=== PATIENT | female | born 2000 | race American Indian/Alaskan Native ===

== ENCOUNTER 2021-04-22 04:14 | Inpatient (IN) | payer OTHER ==
[2021-04-22] MEDS ORDERED: SODIUM CHLORIDE 0.9% 1000 ML 1,000 ML IV ONE ×2 (07:19)
[2021-04-22] MEDS ORDERED: METOCLOPRAMIDE 10 MG/2 ML INJ IV ONE (07:32)
--- NOTE | 2021-04-22 07:38 | Emergency Department Report ---
HPI - General Chief Complaint: Weakness Time Seen by Provider: 04/22/21 07:32 - HPI HPI: Room 25 The patient is a 21-year-old female present with a chief complaint of of "dehydration." The patient states she found out she was approximately 2 months ago. The patient states she has had significant nausea vomiting for the past 2 months and has had significantly decreased p.o. intake. Patient states she is also had intermittent lower abdominal cramping over the past 2 weeks. Patient states she has had shortness of breath and dyspnea on exertion for the past 1 to 2 weeks. Patient denies history of cough or fever but states she has had nasal congestion. Patient states she was never vaccinated for COVID-19. The patient states she had an ultrasound for her 2 weeks ago that showed an IUP. ED Past Medical Hx - Past Medical History Previous Medical History?: No - Surgical History Past Surgical History?: No - Family History Family history: no significant - Social History Smoking Status: Never Smoker Substance Use Type: None (Denies illicit drug use) - Medications Home Medications: Home Medications Medication Instructions Recorded Confirmed Last Taken Type No Known Home Medications [No 04/22/21 04/22/21 Unknown History Reported Home Medications] ED Review of Systems ROS: Stated complaint: EMESIS/10WKS PREG/NO ENERGY Other details as noted in HPI Constitutional: denies: fever Eyes: denies: eye pain ENT: denies: throat pain Respiratory: shortness of breath, SOB with exertion. denies: cough Endocrine: no symptoms reported Gastrointestinal: abdominal pain, nausea, vomiting Genitourinary: denies: dysuria Musculoskeletal: denies: back pain Neurological: denies: headache Physical Exam - Physical Exam Vital Signs: Vital Signs 04/22/21 05:01 Temperature 98.6 F Pulse Rate 133 H Respiratory 19 Rate Blood Pressure 89/56 [Left] O2 Sat by Pulse 100 Oximetry Physical Exam: GENERAL: The patient is well-developed well-nourished female lying on stretcher not appearing to be in acute distress. [] HEENT: Normocephalic. Atraumatic. Extraocular motions are intact. Patient has dry lips NECK: Supple. Trachea midline CHEST/LUNGS: Clear to auscultation. There is no respiratory distress noted. HEART/CARDIOVASCULAR: Regular. There is tachycardia. There is no gallop rub or murmur. ABDOMEN: Abdomen is soft, nontender. Patient has normal bowel sounds. There is no abdominal distention. SKIN: There is no rash. There is no edema. There is no diaphoresis. NEURO: The patient is awake, alert, and oriented. The patient is cooperative. The patient has no focal neurologic deficits. The patient has normal speech MUSCULOSKELETAL: There is no evidence of acute injury. ED Course Vital Signs 04/22/21 05:01 Temperature 98.6 F Pulse Rate 133 H Respiratory 19 Rate Blood Pressure 89/56 [Left] O2 Sat by Pulse 100 Oximetry - Consultations Consultation #1: 04/22/21 10:02 METROLOGIST paged 04/22/21 11:[address] Johnson-will consult ED Medical Decision Making - Lab Data Result diagrams: 04/22/21 08:14 04/22/21 08:14 Laboratory Tests 04/22/21 04/22/21 04/22/21 08:14 08:14 08:14 WBC 7.5 RBC 5.30 H Hgb 15.9 H Hct 45.1 H MCV 85 MCH 30 MCHC 35 H RDW 11.8 L Plt Count 320 Lymph % (Auto) 17.9 [place] % (Auto) 8.9 H Eos % (Auto) 0.5 Baso % (Auto) 0.4 Lymph # (Auto) 1.3 [place] # (Auto) 0.7 Eos # (Auto) 0.0 Baso # (Auto) 0.0 Seg Neutrophils % 72.3 H Seg Neutrophils # 5.4 D-Dimer 188.83 Sodium 131 L Potassium 2.4 L* Chloride 79.7 L Carbon Dioxide 29 Anion Gap 25 BUN 28 H Creatinine 1.0 Estimated GFR > 60 BUN/Creatinine Ratio 28 Glucose 102 H Calcium 10.9 H Total Bilirubin 2.00 H AST 89 H ALT 146 H Alkaline Phosphatase 107 NT-Pro-B Natriuret Pep Total Protein 8.8 H Albumin 4.8 Albumin/Globulin Ratio 1.2 TSH Free T4 HCG, Quant Urine Color Urine Turbidity Urine pH Ur Specific [place] Urine Protein Urine Glucose (UA) Urine Ketones Urine Blood Urine Nitrite Urine Bilirubin Urine Ictotest Urine Urobilinogen Ur Leukocyte Esterase Urine WBC (Auto) Urine RBC (Auto) U Epithel Cells (Auto) Urine Bacteria (Auto) Hyaline Casts Urine Mucus 04/22/21 04/22/21 04/22/21 08:14 08:14 Unknown WBC RBC Hgb Hct MCV MCH MCHC RDW Plt Count Lymph % (Auto) [place] % (Auto) Eos % (Auto) Baso % (Auto) Lymph # (Auto) [place] # (Auto) Eos # (Auto) Baso # (Auto) Seg Neutrophils % Seg Neutrophils # D-Dimer Sodium Potassium Chloride Carbon Dioxide Anion Gap BUN Creatinine Estimated GFR BUN/Creatinine Ratio Glucose Calcium Total Bilirubin AST ALT Alkaline Phosphatase NT-Pro-B Natriuret Pep 19.88 Total Protein Albumin Albumin/Globulin Ratio TSH 0.016 L Free T4 2.95 H HCG, Quant [id number] H Urine Color [place] Urine Turbidity Slightly-cloudy Urine pH 5.0 Ur Specific [place] 1.028 Urine Protein 100 mg/dl Urine Glucose (UA) 50 Urine Ketones 80 Urine Blood Sm Urine Nitrite Neg Urine Bilirubin Mod Urine Ictotest Negative Urine Urobilinogen 4.0 Ur Leukocyte Esterase Mod Urine WBC (Auto) 48.0 H Urine RBC (Auto) 22.0 U Epithel Cells (Auto) 23.0 H Urine Bacteria (Auto) 1+ Hyaline Casts 54 Urine Mucus 3+ - EKG Data -: EKG Interpreted by Ut EKG shows normal: sinus rhythm Rate: normal - EKG Data When compared to previous EKG there are: previous EKG unavailable Interpretation: nonspecific ST-T wave ysabel (Questionable U wave lead V3) - Differential Diagnosis Hyperemesis gravidarum, COVID-19, PE, URI, symptomatic anemia Critical care attestation.: If time is entered above; I have spent that time in minutes in the direct care of this critically ill patient, excluding procedure time. ED Disposition Clinical Impression: Hyperemesis gravidarum, Hypokalemia, UTI (urinary tract infection), Transaminitis, Hyperthyroidism Disposition: OP ADMIT IP TO THIS HOSP Is pt being admited?: Yes Does the pt Need Aspirin: No Condition: Fair Referrals: PRIMARY CARE,MD [Primary Care Provider] - 3-5 Days Time of Disposition: 11:17 (Hospitalist paged (Dr. Black))
[2021-04-22 08:49] LABS: Bacteria,Urine 1+ /HPF (Negative); Bilirubin,Urine MOD (Negative); Blood,Urine SM (Negative); Color,Urine Amber (Yellow); Hyaline Casts,Urine 54 /LPF; Mucus,Urine 3+ /HPF
[2021-04-22 08:54] LABS: Basophils % (Auto) 0.4 % (0.0-1.8); Eosinophils % (Auto) 0.5 % (0.0-4.3); Hematocrit 45.1 % (30.3-42.9); Hemoglobin 15.9 gm/dl (10.1-14.3); Lymphocytes # (Auto) 1.3 K/mm3 (1.2-5.4); Lymphocytes % (Auto) 17.9 % (13.4-35.0); Mean Corpuscular HGB Conc 35 % (30-34); Mean Corpuscular Volume 85 fl (79-97); Monocytes # (Auto) 0.7 K/mm3 (0.0-0.8); Monocytes % (Auto) 8.9 % (0.0-7.3); Platelet Count 320 K/mm3 (140-440); Red Cell Distribution Width 11.8 % (13.2-15.2)
[2021-04-22] MEDS ORDERED: cefTRIAXone/NS 1 GM/50 ML 1 GM/50 ML BAG IV ONE (08:57)
[2021-04-22 08:59] LABS: Ictotest,Urine Negative (Negative)
[2021-04-22 09:11] LABS: Alanine Aminotransferase 146 units/L (7-56); Albumin 4.8 g/dL (3.9-5); BUN/Creatinine Ratio 28; Blood Urea Nitrogen 28 mg/dL (7-17); Calcium 10.9 mg/dL (8.4-10.2); Hemolysis Index 7
[2021-04-22] MEDS ORDERED: POTASSIUM CHLORIDE ER 20 MEQ TAB PO ONE (09:24)
[2021-04-22 09:27] LABS: Free T4 (Free Thyroxine) 2.95 ng/dL (0.76-1.46)
--- NOTE | 2021-04-22 09:27 | XRay Report ---
CHEST 1 VIEW 0915 INDICATION / CLINICAL INFORMATION: Shortness of breath COMPARISON: None available. FINDINGS: SUPPORT DEVICES: None HEART / MEDIASTINUM: No significant abnormality. LUNGS / PLEURA: No significant pulmonary or pleural abnormality. No pneumothorax. ADDITIONAL FINDINGS: No significant additional findings. IMPRESSION: No significant acute abnormality Signer Name: Carlos Dumont MD Signed: 04/22/2021 9:23 AM Workstation Name: [id number]
[2021-04-22] MEDS: POTASSIUM CHLORIDE 10 MEQ 10 MEQ/100 ML BAG IV SCH ×4 (09:46→15:48)
--- NOTE | 2021-04-22 14:34 | Consultation ---
History of Present Illness Consult date: 04/22/21 Reason for consult: other (nausea/vomiting of ) Medications and Allergies Allergies Allergy/AdvReac Type Severity Reaction Status Date / Time No Known Allergies Allergy Unverified 04/22/21 05:03 Home Medications Medication Instructions Recorded Confirmed Last Taken Type No Known Home Medications [No 04/22/21 04/22/21 Unknown History Reported Home Medications] Review of Systems All systems: negative (n/v) - Vital Signs Vital signs: Vital Signs Temp Pulse Resp BP Pulse Ox 98.6 F 133 H 19 89/56 100 04/22/21 05:01 04/22/21 05:01 04/22/21 05:01 04/22/21 05:01 04/22/21 05:01 Temp Pulse Resp BP Pulse Ox 98.6 F 96 H 13 99/54 99 04/22/21 07:40 04/22/21 14:00 04/22/21 14:00 04/22/21 14:00 04/22/21 14:00 Results Result Diagrams: 04/23/21 05:07 04/23/21 05:07 Abnormal lab results 04/22/21 04/22/21 04/22/21 Range/Units 08:14 08:14 08:14 RBC 5.30 H (3.65-5.03) M/mm3 Hgb 15.9 H (10.1-14.3) gm/dl Hct 45.1 H (30.3-42.9) % MCHC 35 H (30-34) % RDW 11.8 L (13.2-15.2) % [place] % (Auto) 8.9 H (0.0-7.3) % Seg Neutrophils % 72.3 H (40.0-70.0) % Sodium 131 L (137-145) mmol/L Potassium 2.4 L* (3.6-5.0) mmol/L Chloride 79.7 L (98-107) mmol/L BUN 28 H (7-17) mg/dL Glucose 102 H (65-100) mg/dL Calcium 10.9 H (8.4-10.2) mg/dL Total Bilirubin 2.00 H (0.1-1.2) mg/dL AST 89 H (5-40) units/L ALT 146 H (7-56) units/L Total Protein 8.8 H (6.3-8.2) g/dL TSH 0.016 L (0.270-4.200) mlU/mL Free T4 2.95 H (0.76-1.46) ng/dL HCG, Quant [id number] H (0-4) mIU/mL Urine WBC (Auto) (0.0-6.0) /HPF U Epithel Cells (Auto) (0-13.0) /HPF 04/22/21 Range/Units Unknown RBC (3.65-5.03) M/mm3 Hgb (10.1-14.3) gm/dl Hct (30.3-42.9) % MCHC (30-34) % RDW (13.2-15.2) % [place] % (Auto) (0.0-7.3) % Seg Neutrophils % (40.0-70.0) % Sodium (137-145) mmol/L Potassium (3.6-5.0) mmol/L Chloride (98-107) mmol/L BUN (7-17) mg/dL Glucose (65-100) mg/dL Calcium (8.4-10.2) mg/dL Total Bilirubin (0.1-1.2) mg/dL AST (5-40) units/L ALT (7-56) units/L Total Protein (6.3-8.2) g/dL TSH (0.270-4.200) mlU/mL Free T4 (0.76-1.46) ng/dL HCG, Quant (0-4) mIU/mL Urine WBC (Auto) 48.0 H (0.0-6.0) /HPF U Epithel Cells (Auto) 23.0 H (0-13.0) /HPF All other labs normal. Assessment and Plan obtain US to confirm viability and dating D5 LR with 20meG KCL at 125ml/hr antiemetic steroid taper if severe no OB intervention Elizabeth Becker MD
[2021-04-22] MEDS ORDERED: HYDROmorphone 1 MG/1 ML INJ IV PRN (21:57)
[2021-04-22] MEDS ORDERED: MORPHINE 2 MG/1 ML INJ IV PRN (21:57)
[2021-04-22] MEDS ORDERED: ACETAMINOPHEN 325 MG TAB PO PRN (21:57)
--- NOTE | 2021-04-22 22:01 | History and Physical Report ---
History of Present Illness Date of examination: 04/22/21 Date of admission: 04/22/21 11:18 Chief complaint: Vomiting for last 8 weeks History of present illness: 21-year-old -[place] female with no significant past medical history comes in for persistent nausea and vomiting. She is 10 weeks . Has been having nausea and vomiting for the past 8 weeks. Patient feels that she is dehydrated. Also significantly decreased p.o. intake. Patient has intermittent lower abdominal cramping for the past 2 weeks. Also some shortness of breath and dyspnea on exertion. No cough or nasal congestion. Patient is not vaccinated. Patient had an ultrasound 2 weeks ago and showed about 8 weeks of intrauterine . Other than progressive no exacerbating factors. No diarrhea. - Past Medical History Previous Medical History?: No - Surgical History Past Surgical History?: No - Family History Family history: no significant - Social History Smoking Status: Never Smoker Substance Use Type: None (Denies illicit drug use) - Medications Home Medications: Home Medications Medication Instructions Recorded Confirmed Last Taken Type No Known Home Medications 21-year-old 21-year-old 21-year-old female Review of Systems ROS: Stated complaint: EMESIS/10WKS PREG/NO ENERGY Other details as noted in HPI Constitutional: denies: fever Eyes: denies: eye pain ENT: denies: throat pain Respiratory: shortness of breath, SOB with exertion. denies: cough Endocrine: no symptoms reported Gastrointestinal: abdominal pain, nausea, vomiting Genitourinary: denies: dysuria Musculoskeletal: denies: back pain Neurological: denies: headache Medications and Allergies Allergies Allergy/AdvReac Type Severity Reaction Status Date / Time No Known Allergies Allergy Unverified 04/22/21 05:03 Home Medications Medication Instructions Recorded Confirmed Last Taken Type No Known Home Medications [No 04/22/21 04/22/21 Unknown History Reported Home Medications] Exam - Constitutional Vitals: Temp Pulse Resp BP Pulse Ox 98.6 F 94 H 15 125/64 99 04/22/21 07:40 04/22/21 18:00 04/22/21 18:00 04/22/21 18:00 04/22/21 18:00 General appearance: Present: no acute distress, well-nourished - EENT Eyes: Present: PERRL ENT: hearing intact, clear oral mucosa, other (Dry mucous membranes) - Neck Neck: Present: supple, normal ROM - Respiratory Respiratory effort: normal Respiratory: bilateral: CTA - Cardiovascular Heart rate: 78 Rhythm: regular Heart Sounds: Present: S1 & S2. Absent: rub, click - Extremities Extremities: no ischemia, pulses intact, pulses symmetrical, No edema Peripheral Pulses: within normal limits - Abdominal General gastrointestinal: Present: soft, non-tender, non-distended, normal bowel sounds Female genitourinary: Present: normal - Integumentary Integumentary: Present: clear, warm, dry - Musculoskeletal Musculoskeletal: gait normal, strength equal bilaterally - Psychiatric Psychiatric: appropriate mood/affect, intact judgment & insight - Neurologic Neurologic: CNII-XII intact, moves all extremities - Allied Health Allied health notes reviewed: nursing, case management Results - Labs CBC & Chem 7: 04/23/21 05:07 04/22/21 08:14 Labs: Laboratory Last Values WBC 7.5 K/mm3 (4.5-11.0) 04/22/21 08:14 RBC 5.30 M/mm3 (3.65-5.03) H 04/22/21 08:14 Hgb 15.9 gm/dl (10.1-14.3) H 04/22/21 08:14 Hct 45.1 % (30.3-42.9) H 04/22/21 08:14 MCV 85 fl (79-97) 04/22/21 08:14 MCH 30 pg (28-32) 04/22/21 08:14 MCHC 35 % (30-34) H 04/22/21 08:14 RDW 11.8 % (13.2-15.2) L 04/22/21 08:14 Plt Count 320 K/mm3 (140-440) 04/22/21 08:14 Lymph % (Auto) 17.9 % (13.4-35.0) 04/22/21 08:14 [place] % (Auto) 8.9 % (0.0-7.3) H 04/22/21 08:14 Eos % (Auto) 0.5 % (0.0-4.3) 04/22/21 08:14 Baso % (Auto) 0.4 % (0.0-1.8) 04/22/21 08:14 Lymph # (Auto) 1.3 K/mm3 (1.2-5.4) 04/22/21 08:14 [place] # (Auto) 0.7 K/mm3 (0.0-0.8) 04/22/21 08:14 Eos # (Auto) 0.0 K/mm3 (0.0-0.4) 04/22/21 08:14 Baso # (Auto) 0.0 K/mm3 (0.0-0.1) 04/22/21 08:14 Seg Neutrophils % 72.3 % (40.0-70.0) H 04/22/21 08:14 Seg Neutrophils # 5.4 K/mm3 (1.8-7.7) 04/22/21 08:14 D-Dimer 188.83 ng/mlDDU (0-234) 04/22/21 08:14 Sodium 131 mmol/L (137-145) L 04/22/21 08:14 Potassium 2.4 mmol/L (3.6-5.0) L* 04/22/21 08:14 Chloride 79.7 mmol/L (98-107) L 04/22/21 08:14 Carbon Dioxide 29 mmol/L (22-30) 04/22/21 08:14 Anion Gap 25 mmol/L 04/22/21 08:14 BUN 28 mg/dL (7-17) H 04/22/21 08:14 Creatinine 1.0 mg/dL (0.6-1.2) 04/22/21 08:14 Estimated GFR > 60 ml/min 04/22/21 08:14 BUN/Creatinine Ratio 28 % 04/22/21 08:14 Glucose 102 mg/dL (65-100) H 04/22/21 08:14 Calcium 10.9 mg/dL (8.4-10.2) H 04/22/21 08:14 Total Bilirubin 2.00 mg/dL (0.1-1.2) H 04/22/21 08:14 AST 89 units/L (5-40) H 04/22/21 08:14 ALT 146 units/L (7-56) H 04/22/21 08:14 Alkaline Phosphatase 107 units/L (35-129) 04/22/21 08:14 NT-Pro-B Natriuret Pep 19.88 pg/mL (0-450) 04/22/21 08:14 Total Protein 8.8 g/dL (6.3-8.2) H 04/22/21 08:14 Albumin 4.8 g/dL (3.9-5) 04/22/21 08:14 Albumin/Globulin Ratio 1.2 % 04/22/21 08:14 TSH 0.016 mlU/mL (0.270-4.200) L 04/22/21 08:14 Free T4 2.95 ng/dL (0.76-1.46) H 04/22/21 08:14 HCG, Quant 825067 mIU/mL (0-4) H 04/22/21 08:14 Urine Color [place] (Yellow) 04/22/21 Unknown Urine Turbidity Slightly-cloudy (Clear) 04/22/21 Unknown Urine pH 5.0 (5.0-7.0) 04/22/21 Unknown Ur Specific [place] 1.028 (1.003-1.030) 04/22/21 Unknown Urine Protein 100 mg/dl mg/dL (Negative) 04/22/21 Unknown Urine Glucose (UA) 50 mg/dL (Negative) 04/22/21 Unknown Urine Ketones 80 mg/dL (Negative) 04/22/21 Unknown Urine Blood Sm (Negative) 04/22/21 Unknown Urine Nitrite Neg (Negative) 04/22/21 Unknown Urine Bilirubin Mod (Negative) 04/22/21 Unknown Urine Ictotest Negative (Negative) 04/22/21 Unknown Urine Urobilinogen 4.0 mg/dL (<2.0) 04/22/21 Unknown Ur Leukocyte Esterase Mod (Negative) 04/22/21 Unknown Urine WBC (Auto) 48.0 /HPF (0.0-6.0) H 04/22/21 Unknown Urine RBC (Auto) 22.0 /HPF (0.0-6.0) 04/22/21 Unknown U Epithel Cells (Auto) 23.0 /HPF (0-13.0) H 04/22/21 Unknown Urine Bacteria (Auto) 1+ /HPF (Negative) 04/22/21 Unknown Hyaline Casts 54 /LPF 04/22/21 Unknown Urine Mucus 3+ /HPF 04/22/21 Unknown Short CBC 04/22/21 04/23/21 Range/Units 08:14 05:07 WBC 7.5 5.7 (4.5-11.0) K/mm3 Hgb 15.9 H 12.3 D (10.1-14.3) gm/dl Hct 45.1 H 34.7 D (30.3-42.9) % Plt Count 320 216 (140-440) K/mm3 BMP 04/22/21 04/23/21 08:14 05:07 Sodium 131 L Potassium 2.4 L* Chloride 79.7 L Carbon Dioxide 29 26 BUN 28 H 11 Creatinine 1.0 0.6 Glucose 102 H 108 H Calcium 10.9 H 9.2 D Liver Function 04/22/21 04/23/21 Range/Units 08:14 05:07 Total Bilirubin 2.00 H 1.10 (0.1-1.2) mg/dL AST 89 H 93 H (5-40) units/L ALT 146 H 144 H (7-56) units/L Alkaline Phosphatase 107 76 (35-129) units/L Albumin 4.8 3.4 L (3.9-5) g/dL Urine 04/22/21 Range/Units Unknown Urine Color [place] (Yellow) Urine pH 5.0 (5.0-7.0) Ur Specific [place] 1.028 (1.003-1.030) Urine Protein 100 mg/dl (Negative) mg/dL Urine Glucose (UA) 50 (Negative) mg/dL Assessment and Plan Advance Directives: Yes (Full code) VTE prophylaxis?: Chemical Plan of care discussed with patient/family: Yes - Patient Problems (1) Hyperemesis gravidarum Current Visit: Yes Status: Acute Plan to address problem: Patient initiated on IV fluids and IV Zofran every 3 hours. Patient is symptomatically better after couple doses of Zofran. Patient will be discharged Zofran ODT tablets rest symptomatically better by tomorrow (2) Hypokalemia Current Visit: Yes Status: Acute Plan to address problem: Supplemented by IV potassium and oral potassium Recheck potassium level in the morning (3) UTI (urinary tract infection) Current Visit: Yes Status: Acute Qualifiers: Urinary tract infection type: acute cystitis Plan to address problem: Patient initiated on IV Rocephin Cultures pending (4) Transaminitis Current Visit: Yes Status: Acute Plan to address problem: Acute hepatitis profile requested (5) Person under investigation for COVID-19 Current Visit: Yes Status: Acute Plan to address problem: Coronavirus PCR requested (6) DVT prophylaxis Current Visit: Yes Status: Acute Plan to address problem: On heparin and GI prophylaxis
[2021-04-22] MEDS: FAMOTIDINE 20 MG/2 ML INJ IV SCH (22:45)
[2021-04-22] MEDS: HEPARIN 5,000 UNIT/1 ML VIAL SUB-Q SCH (22:45)
[2021-04-22] MEDS: ONDANSETRON 4 MG/2 ML INJ IV PRN (22:45)
[2021-04-22] MEDS: D5W/0.9% NACL 1,000 ML IV SCH (22:46)
[2021-04-23 05:56] LABS: Basophils % (Auto) 0.7 % (0.0-1.8); Eosinophils # (Auto) 0.1 K/mm3 (0.0-0.4); Eosinophils % (Auto) 1.8 % (0.0-4.3); Hematocrit 34.7 % (30.3-42.9); Hemoglobin 12.3 gm/dl (10.1-14.3); Lymphocytes # (Auto) 1.7 K/mm3 (1.2-5.4); Lymphocytes % (Auto) 29.1 % (13.4-35.0); Mean Corpuscular HGB Conc 35 % (30-34); Mean Corpuscular Volume 86 fl (79-97); Monocytes # (Auto) 0.7 K/mm3 (0.0-0.8); Monocytes % (Auto) 11.6 % (0.0-7.3); Platelet Count 216 K/mm3 (140-440); Red Blood Count 4.04 M/mm3 (3.65-5.03); Red Cell Distribution Width 11.7 % (13.2-15.2)
[2021-04-23 06:16] LABS: Alanine Aminotransferase 144 units/L (7-56); Albumin 3.4 g/dL (3.9-5); Blood Urea Nitrogen 11 mg/dL (7-17); Calcium 9.2 mg/dL (8.4-10.2); Hemolysis Index 3
[2021-04-23 06:24] LABS: BUN/Creatinine Ratio 18
[2021-04-23] MEDS ORDERED: POTASSIUM CHLORIDE ER 20 MEQ TAB PO ONE ×3 (06:29→21:35)
[2021-04-23] MEDS: FAMOTIDINE 20 MG/2 ML INJ IV SCH ×2 (09:16→21:49)
[2021-04-23] MEDS: ONDANSETRON 4 MG/2 ML INJ IV PRN ×2 (09:16→21:49)
[2021-04-23] MEDS: D5W/0.9% NACL 1,000 ML IV SCH (09:17)
[2021-04-23] MEDS: HEPARIN 5,000 UNIT/1 ML VIAL SUB-Q SCH ×2 (09:17→21:49)
--- NOTE | 2021-04-23 09:40 | Progress Note ---
Assessment and Plan Assessment and plan: (1) Hyperemesis gravidarum Current Visit: Yes Status: Acute Plan to address problem: Patient initiated on IV fluids and IV Zofran every 3 hours. Patient is symptomatically better after couple doses of Zofran. Patient will be discharged Zofran ODT tablets rest symptomatically better by tomorrow (2) Hypokalemia Current Visit: Yes Status: Acute Plan to address problem: Supplemented by IV potassium and oral potassium Recheck potassium level in the morning (3) UTI (urinary tract infection) Current Visit: Yes Status: Acute Qualifiers: Urinary tract infection type: acute cystitis Plan to address problem: Patient initiated on IV Rocephin Cultures pending (4) Transaminitis Current Visit: Yes Status: Acute Plan to address problem: Acute hepatitis profile requested (5) Person under investigation for COVID-19 Current Visit: Yes Status: Acute Plan to address problem: Coronavirus PCR requested (6) DVT prophylaxis Current Visit: Yes Status: Acute Plan to address problem: On heparin and GI prophylaxis 70/30; patient's nausea and vomiting subsided. Patient's potassium was 2.6 this morning. We will give her IV potassium. Recheck potassium level after repleted. Patient can be discharged once her potassium level is corrected. History Interval history: Patient was seen and evaluated this morning Patient did not have any nausea or vomiting Hospitalist Physical - Physical exam Narrative exam: Not in cardiopulmonary distress. The patient appeared well nourished and normally developed. Vital signs as documented. Head exam is unremarkable. No scleral icterus . Neck is without jugular venous distension, thyromegaly, or carotid bruits. Lungs are clear to auscultation. Cardiac exam reveals regular rate and Rhythm. Abdominal exam reveals normal bowel sounds, nontender, no organomegaly. Extremities are nonedematous and both femoral and pedal pulses are normal. 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 No focal weakness. - Constitutional Vitals: Temp Pulse Resp BP Pulse Ox 98.5 F 79 16 94/44 100 04/23/21 07:35 04/23/21 07:35 04/23/21 07:35 04/23/21 07:35 04/23/21 07:35 General appearance: Present: no acute distress, well-nourished Results - Labs CBC & Chem 7: 04/23/21 05:07 04/23/21 05:07 Labs: Laboratory Last Values WBC 5.7 K/mm3 (4.5-11.0) 04/23/21 05:07 RBC 4.04 M/mm3 (3.65-5.03) 04/23/21 05:07 Hgb 12.3 gm/dl (10.1-14.3) D 04/23/21 05:07 Hct 34.7 % (30.3-42.9) D 04/23/21 05:07 MCV 86 fl (79-97) 04/23/21 05:07 MCH 30 pg (28-32) 04/23/21 05:07 MCHC 35 % (30-34) H 04/23/21 05:07 RDW 11.7 % (13.2-15.2) L 04/23/21 05:07 Plt Count 216 K/mm3 (140-440) 04/23/21 05:07 Lymph % (Auto) 29.1 % (13.4-35.0) 04/23/21 05:07 [place] % (Auto) 11.6 % (0.0-7.3) H 04/23/21 05:07 Eos % (Auto) 1.8 % (0.0-4.3) 04/23/21 05:07 Baso % (Auto) 0.7 % (0.0-1.8) 04/23/21 05:07 Lymph # (Auto) 1.7 K/mm3 (1.2-5.4) 04/23/21 05:07 [place] # (Auto) 0.7 K/mm3 (0.0-0.8) 04/23/21 05:07 Eos # (Auto) 0.1 K/mm3 (0.0-0.4) 04/23/21 05:07 Baso # (Auto) 0.0 K/mm3 (0.0-0.1) 04/23/21 05:07 Seg Neutrophils % 56.8 % (40.0-70.0) 04/23/21 05:07 Seg Neutrophils # 3.3 K/mm3 (1.8-7.7) 04/23/21 05:07 D-Dimer 188.83 ng/mlDDU (0-234) 04/22/21 08:14 Sodium 138 mmol/L (137-145) D 04/23/21 05:07 Potassium 2.6 mmol/L (3.6-5.0) L* 04/23/21 05:07 Chloride 100.2 mmol/L (98-107) 04/23/21 05:07 Carbon Dioxide 26 mmol/L (22-30) 04/23/21 05:07 Anion Gap 14 mmol/L 04/23/21 05:07 BUN 11 mg/dL (7-17) 04/23/21 05:07 Creatinine 0.6 mg/dL (0.6-1.2) 04/23/21 05:07 Estimated GFR > 60 ml/min 04/23/21 05:07 BUN/Creatinine Ratio 18 % 04/23/21 05:07 Glucose 108 mg/dL (65-100) H 04/23/21 05:07 Calcium 9.2 mg/dL (8.4-10.2) D 04/23/21 05:07 Total Bilirubin 1.10 mg/dL (0.1-1.2) 04/23/21 05:07 AST 93 units/L (5-40) H 04/23/21 05:07 ALT 144 units/L (7-56) H 04/23/21 05:07 Alkaline Phosphatase 76 units/L (35-129) 04/23/21 05:07 NT-Pro-B Natriuret Pep 19.88 pg/mL (0-450) 04/22/21 08:14 Total Protein 6.2 g/dL (6.3-8.2) L D 04/23/21 05:07 Albumin 3.4 g/dL (3.9-5) L 04/23/21 05:07 Albumin/Globulin Ratio 1.2 % 04/23/21 05:07 TSH 0.016 mlU/mL (0.270-4.200) L 04/22/21 08:14 Free T4 2.95 ng/dL (0.76-1.46) H 04/22/21 08:14 HCG, Quant 039032 mIU/mL (0-4) H 04/22/21 08:14 Urine Color [place] (Yellow) 04/22/21 Unknown Urine Turbidity Slightly-cloudy (Clear) 04/22/21 Unknown Urine pH 5.0 (5.0-7.0) 04/22/21 Unknown Ur Specific [place] 1.028 (1.003-1.030) 04/22/21 Unknown Urine Protein 100 mg/dl mg/dL (Negative) 04/22/21 Unknown Urine Glucose (UA) 50 mg/dL (Negative) 04/22/21 Unknown Urine Ketones 80 mg/dL (Negative) 04/22/21 Unknown Urine Blood Sm (Negative) 04/22/21 Unknown Urine Nitrite Neg (Negative) 04/22/21 Unknown Urine Bilirubin Mod (Negative) 04/22/21 Unknown Urine Ictotest Negative (Negative) 04/22/21 Unknown Urine Urobilinogen 4.0 mg/dL (<2.0) 04/22/21 Unknown Ur Leukocyte Esterase Mod (Negative) 04/22/21 Unknown Urine WBC (Auto) 48.0 /HPF (0.0-6.0) H 04/22/21 Unknown Urine RBC (Auto) 22.0 /HPF (0.0-6.0) 04/22/21 Unknown U Epithel Cells (Auto) 23.0 /HPF (0-13.0) H 04/22/21 Unknown Urine Bacteria (Auto) 1+ /HPF (Negative) 04/22/21 Unknown Hyaline Casts 54 /LPF 04/22/21 Unknown Urine Mucus 3+ /HPF 04/22/21 Unknown Herman/IV: Voiding Method Toilet Active Medications - Current Medications Current Medications: Generic Name Dose Route Start Last Admin Trade Name Freq PRN Reason Stop Dose Admin Acetaminophen 650 mg 04/22/21 21:57 Acetaminophen 325 Mg Tab PO Q4H PRN Pain MILD(1-3)/Fever >100.5/MCCRACKEN Famotidine 20 mg 04/22/21 22:00 04/23/21 09:16 Famotidine 20 Mg/2 Ml Inj IV 20 mg BID LOYDA Administration Heparin Sodium (Porcine) 5,000 unit 04/22/21 22:00 04/23/21 09:17 Heparin 5,000 Unit/1 Ml Vial SUB-Q 5,000 unit Q12HR LOYDA Administration Hydromorphone HCl 0.5 mg 04/22/21 21:57 Hydromorphone 1 Mg/1 Ml Inj IV Q3H PRN Pain , Severe (7-10) Dextrose/Sodium Chloride 1,000 mls @ 125 mls/hr 04/22/21 22:00 04/23/21 09:17 D5ns IV 125 mls/hr DIRECT LOYDA Administration Potassium Chloride 10 meq in 100 mls @ 100 mls/hr 04/23/21 10:00 Kcl 10meq/100ml IV 04/23/21 13:59 Q1H LOYDA Morphine Sulfate 2 mg 04/22/21 21:57 Morphine 2 Mg/1 Ml Inj IV Q4H PRN Pain, Moderate (4-6) Ondansetron HCl 4 mg 04/22/21 21:57 04/23/21 09:16 Ondansetron 4 Mg/2 Ml Inj IV 4 mg Q3H PRN Administration Nausea And Vomiting Sodium Chloride 10 ml 04/22/21 22:00 04/23/21 09:17 Sodium Chloride 0.9% 10 Ml Flush Syringe IV 10 ml BID LOYDA Administration Sodium Chloride 10 ml 04/22/21 21:57 Sodium Chloride 0.9% 10 Ml Flush Syringe IV PRN PRN LINE FLUSH
--- NOTE | 2021-04-23 10:37 | Ultrasound Report ---
ULTRASOUND OBSTETRIC INDICATION / CLINICAL INFORMATION: VIABILITY AND DATING. Clinical Gestational Age (GA) in weeks, days: 11, 1 TECHNIQUE: Transabdominal. COMPARISON: None available. FINDINGS: GESTATIONAL SAC: Well-defined oval shape and intrauterine in location. YOLK SAC: Not seen EMBRYO/FETUS: There is increased fluid echogenicity in the brain this is not optimally evaluate d on this study but does appear abnormal. I cannot determine if this represents an enlarged ventricle or possibly holoprosencephaly. - [place]-Rump Length = 3.85 cm = 10, 5 weeks, days - Heart Rate, beats per minute (if present) = 162 ADNEXA: No significant abnormality. FREE FLUID: None. ADDITIONAL FINDINGS: There is a small subchorionic bleed. IMPRESSION: 1. Single, living intrauterine with estimated sonographic age of 10, 5 weeks, days. 2. There is increased fluid echogenicity in the brain which appears abnormal. Evaluation is not optimal on this study. This could represent enlarged ventricles or possibly holoprosencephaly. This is not definitive and requires further evaluation. 3. There is a small subchorionic bleed. Signer Name: Siddharth Caicedo MD Signed: 04/23/2021 10:32 AM Workstation Name: [id number]
[2021-04-23] MEDS: POTASSIUM CHLORIDE 10 MEQ 10 MEQ/100 ML BAG IV SCH ×2 (10:50→12:13)
[2021-04-23 16:11] LABS: Hepatitis B Surface Antigen Non-Reactive (Negative); Hepatitis C Virus Antibody Non-Reactive (NonReactive)
[2021-04-23] MEDS: cefTRIAXone/NS 1 GM/50 ML 1 GM/50 ML BAG IV SCH (16:32)
--- NOTE | 2021-04-23 17:49 | Electrocardiograph Report ---
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 No previous ECG available for comparison Electronically Signed On 04-23-2021 17:49:19 EDT by Toribio Peck
[2021-04-23] MEDS ORDERED: cefTRIAXone/NS 1 GM/50 ML 1 GM/50 ML BAG IV SCH (19:00)
[2021-04-24] MEDS: POTASSIUM CHLORIDE 10 MEQ 10 MEQ/100 ML BAG IV SCH ×4 (00:56→05:17)
[2021-04-24] MEDS: D5W/0.9% NACL 1,000 ML IV SCH ×3 (01:01→22:49)
[2021-04-24 06:24] LABS: Blood Urea Nitrogen 4 mg/dL (7-17); Calcium 8.8 mg/dL (8.4-10.2); Hemolysis Index 3
[2021-04-24 06:38] LABS: BUN/Creatinine Ratio 10
[2021-04-24] MEDS: HEPARIN 5,000 UNIT/1 ML VIAL SUB-Q SCH ×2 (09:16→22:37)
[2021-04-24] MEDS: FAMOTIDINE 20 MG/2 ML INJ IV SCH ×2 (09:16→22:37)
--- NOTE | 2021-04-24 12:11 | Progress Note ---
Assessment and Plan - Patient Problems (1) Hyperemesis gravidarum Current Visit: Yes Status: Acute Plan to address problem: Continue medical management. 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 (2) Person under investigation for COVID-19 Current Visit: Yes Status: Acute Plan to address problem: Patient is asymptomatic at this time. (3) DVT prophylaxis Current Visit: Yes Status: Acute Plan to address problem: SCD to bilateral lower extremities while in bed, patient is ambulatory History Interval history: 21 YO Female with hyperemesis gravidarum. Patient resting comfortably. No reported nursing events. Patient denies shortness of breath. Discharge planning in a.m. pending control of emesis. Hospitalist Physical - Constitutional Vitals: Temp Pulse Resp BP Pulse Ox 98.7 F 82 18 95/56 99 04/24/21 09:17 04/24/21 10:40 04/24/21 10:40 04/24/21 09:17 04/24/21 10:40 General appearance: Present: no acute distress, well-nourished - EENT Eyes: Present: PERRL, EOM intact ENT: hearing intact - Neck Neck: Present: supple - Respiratory Respiratory effort: normal Respiratory: bilateral: CTA - Cardiovascular Rhythm: regular Heart Sounds: Present: S1 & S2 - Extremities Extremities: no ischemia Peripheral Pulses: within normal limits - Abdominal General gastrointestinal: soft, non-tender, non-distended, other (Gravid uterus) - Integumentary Integumentary: Present: clear, dry - Psychiatric Psychiatric: appropriate mood/affect, cooperative - Neurologic Neurologic: CNII-XII intact Results - Labs CBC & Chem 7: 04/23/21 05:07 04/24/21 05:27 Labs: Laboratory Last Values WBC 5.7 K/mm3 (4.5-11.0) 04/23/21 05:07 RBC 4.04 M/mm3 (3.65-5.03) 04/23/21 05:07 Hgb 12.3 gm/dl (10.1-14.3) D 04/23/21 05:07 Hct 34.7 % (30.3-42.9) D 04/23/21 05:07 MCV 86 fl (79-97) 04/23/21 05:07 MCH 30 pg (28-32) 04/23/21 05:07 MCHC 35 % (30-34) H 04/23/21 05:07 RDW 11.7 % (13.2-15.2) L 04/23/21 05:07 Plt Count 216 K/mm3 (140-440) 04/23/21 05:07 Lymph % (Auto) 29.1 % (13.4-35.0) 04/23/21 05:07 Ashley % (Auto) 11.6 % (0.0-7.3) H 04/23/21 05:07 Eos % (Auto) 1.8 % (0.0-4.3) 04/23/21 05:07 Baso % (Auto) 0.7 % (0.0-1.8) 04/23/21 05:07 Lymph # (Auto) 1.7 K/mm3 (1.2-5.4) 04/23/21 05:07 Ashley # (Auto) 0.7 K/mm3 (0.0-0.8) 04/23/21 05:07 Eos # (Auto) 0.1 K/mm3 (0.0-0.4) 04/23/21 05:07 Baso # (Auto) 0.0 K/mm3 (0.0-0.1) 04/23/21 05:07 Seg Neutrophils % 56.8 % (40.0-70.0) 04/23/21 05:07 Seg Neutrophils # 3.3 K/mm3 (1.8-7.7) 04/23/21 05:07 D-Dimer 188.83 ng/mlDDU (0-234) 04/22/21 08:14 Sodium 136 mmol/L (137-145) L 04/24/21 05:27 Potassium 3.5 mmol/L (3.6-5.0) L 04/24/21 05:27 Chloride 105.8 mmol/L (98-107) 04/24/21 05:27 Carbon Dioxide 24 mmol/L (22-30) 04/24/21 05:27 Anion Gap 10 mmol/L 04/24/21 05:27 BUN 4 mg/dL (7-17) L 04/24/21 05:27 Creatinine 0.4 mg/dL (0.6-1.2) L 04/24/21 05:27 Estimated GFR > 60 ml/min 04/24/21 05:27 BUN/Creatinine Ratio 10 % 04/24/21 05:27 Glucose 99 mg/dL (65-100) 04/24/21 05:27 Hemoglobin A1c 5.6 % (4-6) 04/23/21 05:07 Calcium 8.8 mg/dL (8.4-10.2) 04/24/21 05:27 Magnesium 2.10 mg/dL (1.7-2.3) 04/23/21 14:24 Total Bilirubin 1.10 mg/dL (0.1-1.2) 04/23/21 05:07 AST 93 units/L (5-40) H 04/23/21 05:07 ALT 144 units/L (7-56) H 04/23/21 05:07 Alkaline Phosphatase 76 units/L (35-129) 04/23/21 05:07 NT-Pro-B Natriuret Pep 19.88 pg/mL (0-450) 04/22/21 08:14 Total Protein 6.2 g/dL (6.3-8.2) L D 04/23/21 05:07 Albumin 3.4 g/dL (3.9-5) L 04/23/21 05:07 Albumin/Globulin Ratio 1.2 % 04/23/21 05:07 TSH 0.016 mlU/mL (0.270-4.200) L 04/22/21 08:14 Free T4 2.95 ng/dL (0.76-1.46) H 04/22/21 08:14 HCG, Quant 273916 mIU/mL (0-4) H 04/22/21 08:14 Urine Color [place] (Yellow) 04/22/21 Unknown Urine Turbidity Slightly-cloudy (Clear) 04/22/21 Unknown Urine pH 5.0 (5.0-7.0) 04/22/21 Unknown Ur Specific [place] 1.028 (1.003-1.030) 04/22/21 Unknown Urine Protein 100 mg/dl mg/dL (Negative) 04/22/21 Unknown Urine Glucose (UA) 50 mg/dL (Negative) 04/22/21 Unknown Urine Ketones 80 mg/dL (Negative) 04/22/21 Unknown Urine Blood Sm (Negative) 04/22/21 Unknown Urine Nitrite Neg (Negative) 04/22/21 Unknown Urine Bilirubin Mod (Negative) 04/22/21 Unknown Urine Ictotest Negative (Negative) 04/22/21 Unknown Urine Urobilinogen 4.0 mg/dL (<2.0) 04/22/21 Unknown Ur Leukocyte Esterase Mod (Negative) 04/22/21 Unknown Urine WBC (Auto) 48.0 /HPF (0.0-6.0) H 04/22/21 Unknown Urine RBC (Auto) 22.0 /HPF (0.0-6.0) 04/22/21 Unknown U Epithel Cells (Auto) 23.0 /HPF (0-13.0) H 04/22/21 Unknown Urine Bacteria (Auto) 1+ /HPF (Negative) 04/22/21 Unknown Hyaline Casts 54 /LPF 04/22/21 Unknown Urine Mucus 3+ /HPF 04/22/21 Unknown Hepatitis A IgM Ab Non-reactive (NonReactive) 04/23/21 14:24 Hep Bs Antigen Non-reactive (Negative) 04/23/21 14:24 Hep B Core IgM Ab Non-reactive (NonReactive) 04/23/21 14:24 Hepatitis C Antibody Non-reactive (NonReactive) 04/23/21 14:24 Microbiology: Microbiology 04/22/21 Unknown Urine,Clean Catch Urine Culture - Preliminary Herman/IV: Voiding Method Toilet Active Medications - Current Medications Current Medications: Generic Name Dose Route Start Last Admin Trade Name Freq PRN Reason Stop Dose Admin Acetaminophen 650 mg 04/22/21 21:57 Acetaminophen 325 Mg Tab PO Q4H PRN Pain MILD(1-3)/Fever >100.5/MCCRACKEN Famotidine 20 mg 04/22/21 22:00 04/24/21 09:16 Famotidine 20 Mg/2 Ml Inj IV 20 mg BID LOYDA Administration Heparin Sodium (Porcine) 5,000 unit 04/22/21 22:00 04/24/21 09:16 Heparin 5,000 Unit/1 Ml Vial SUB-Q 5,000 unit Q12HR LOYDA Administration Hydromorphone HCl 0.5 mg 04/22/21 21:57 Hydromorphone 1 Mg/1 Ml Inj IV Q3H PRN Pain , Severe (7-10) Dextrose/Sodium Chloride 1,000 mls @ 125 mls/hr 04/22/21 22:00 04/24/21 09:17 D5ns IV 125 mls/hr DIRECT LOYDA Administration Ceftriaxone Sodium 1 gm in 50 mls @ 100 mls/hr 04/23/21 16:00 04/23/21 16:32 Rocephin/Ns 1 Gm/50 Ml IV 100 mls/hr Q24H LOYDA Administration Protocol Morphine Sulfate 2 mg 04/22/21 21:57 Morphine 2 Mg/1 Ml Inj IV Q4H PRN Pain, Moderate (4-6) Ondansetron HCl 4 mg 04/22/21 21:57 04/23/21 21:49 Ondansetron 4 Mg/2 Ml Inj IV 4 mg Q3H PRN Administration Nausea And Vomiting Sodium Chloride 10 ml 04/22/21 22:00 04/24/21 09:16 Sodium Chloride 0.9% 10 Ml Flush Syringe IV 10 ml BID LOYDA Administration Sodium Chloride 10 ml 04/22/21 21:57 Sodium Chloride 0.9% 10 Ml Flush Syringe IV PRN PRN LINE FLUSH Nutrition/Malnutrition Assess - Dietary Evaluation Nutrition/Malnutrition Findings: Nutrition Notes Start: 04/23/21 14:09 Freq: Status: Active Protocol: Document 04/23/21 14:10 (Rec: 04/23/21 14:18 [id number]) Nutrition Notes Need for 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 Pt reports N/V for 8 weeks. She reports wt loss but unsure of how much . She had a few bites of toast and eggs for breakfast. She is willing to try 1 ONS daily. Burn Absent Trauma Absent GI Symptoms Nausea,Vomiting Current % PO Negligible Minimum of two criteria Yes Energy Intake (severe) < or equal to 50% Estimated Energy Requirement > or equal to 5 days Interpretation of Weight Loss (non- 1-2% in 1 week severe) #1 Nutrition Diagnosis Malnutrition Etiology hyperemesis gravidarum As Evidenced by Signs and Symptoms <50% of EER in >5 days, 1-2% wt loss in 1 week Is patient on ventilator? No Is Patient Ambulatory and/or Out of Bed Yes REE-([facility]-ambulatory/OOB) [ 1982.175 NUTR.MSJOOB] Calculation Used for Recommendations [facility] Additional Notes Protein: (1.2-1.5g/kg) 90-112g Fluid: 1 ml/kcal Nutrition Intervention Change Diet Order: continue Add Supplement/Snack (indicate name/kcal Ensure Enlive daily /protein ) Provides kCal: 350 Provides Protein (gm) 20 Goal #1 Meet at least 75% of energy and protein needs via PO and ONS Anticipated Discharge Needs: regular Follow-Up By: 04/26/21 Additional Comments FU for intakes and ONS tolerance
[2021-04-24] MEDS: cefTRIAXone/NS 1 GM/50 ML 1 GM/50 ML BAG IV SCH (16:32)
[2021-04-24] MEDS: ONDANSETRON 4 MG/2 ML INJ IV PRN (20:02)
[2021-04-25] MEDS: HEPARIN 5,000 UNIT/1 ML VIAL SUB-Q SCH (09:14)
[2021-04-25] MEDS: FAMOTIDINE 20 MG/2 ML INJ IV SCH (09:14)
[2021-04-25] MEDS: D5W/0.9% NACL 1,000 ML IV SCH (09:22)
[2021-04-25] MEDS: ONDANSETRON 4 MG/2 ML INJ IV PRN (09:22)
--- NOTE | 2021-04-25 13:43 | Discharge Summary ---
Providers - Providers Date of Admission: 04/23/21 14:09 Attending physician: TOMMY DAILY 04/22/21 11:02 Consult to Physician [CONS] Urgent Comment: Consulting Provider: RUSS ELIAS Physician Instructions: Reason For Exam: Hyperemesis gravidarum Primary care physician: CHIEF ENGINEER PRODUCTION Hospitalization Condition: Fair - Discharge Diagnoses (1) Hyperemesis gravidarum Status: Acute (2) Person under investigation for COVID-19 Status: Acute (3) DVT prophylaxis Status: Acute Exam - Constitutional Vitals: Temp Pulse Resp BP Pulse Ox 99.2 F 70 18 90/41 99 04/25/21 07:59 04/25/21 09:00 04/25/21 10:00 04/25/21 07:59 04/25/21 10:00 Plan Follow up with: PRIMARY CARE, [Primary Care Provider] - 3-5 Days Prescriptions: Ondansetron [Zofran Odt] 4 mg PO Q8HR PRN #24 tab.rapdis PRN Reason: Nausea
[2021-04-25 13:52] VITALS: BP 96/43
[2021-04-25] MEDS: cefTRIAXone/NS 1 GM/50 ML 1 GM/50 ML BAG IV SCH (17:50)
== END 2021-04-25 17:51 | disposition home or self-care (01) | DRG 832 ==
LOC: ED 04:14 → 4A 11:18 → OBSVTOIN 04-23 14:09
PROVIDERS: ADMIT Internal Medicine; ATTEND Internal Medicine
DX: O21.0 Mild hyperemesis gravidarum (principal); O23.41 Unspecified infection of urinary tract in pregnancy, first trimester; E87.6 Hypokalemia; O99.281 Endocrine, nutritional and metabolic diseases complicating pregnancy, first trimester; R74.01 Elevation of levels of liver transaminase levels; E05.90 Thyrotoxicosis, unspecified without thyrotoxic crisis or storm; O26.891 Other specified pregnancy related conditions, first trimester; Z3A.10 10 weeks gestation of pregnancy
CPT/HCPCS: 36415; 71045; 76801; 80048; 80053; 80074; 81001; 83036; 83735; 83880; 84132; 84439; 84443; 84702; 85025; 85379; 87086; 93005; G0378; J0696; J1644; J2405; J2765; J3480; J7030; J7042

== ENCOUNTER 2021-05-19 08:06 | Emergency (ER) | payer SELFPAY ==
[2021-05-19] MEDS ORDERED: SODIUM CHLORIDE 0.9% 1000 ML 1,000 ML IV ONE (08:25)
[2021-05-19] MEDS ORDERED: MORPHINE 2 MG/1 ML INJ IV ONE (08:25)
[2021-05-19] MEDS ORDERED: ONDANSETRON 4 MG/2 ML INJ IV ONE (08:25)
[2021-05-19 09:13] LABS: Basophils % (Auto) 0.3 % (0.0-1.8); Eosinophils # (Auto) 0.3 K/mm3 (0.0-0.4); Eosinophils % (Auto) 2.4 % (0.0-4.3); Hematocrit 36.4 % (30.3-42.9); Hemoglobin 12.1 gm/dl (10.1-14.3); Lymphocytes % (Auto) 16.1 % (13.4-35.0); Mean Corpuscular HGB Conc 33 % (30-34); Mean Corpuscular Volume 92 fl (79-97); Monocytes # (Auto) 0.7 K/mm3 (0.0-0.8); Monocytes % (Auto) 5.3 % (0.0-7.3); Platelet Count 281 K/mm3 (140-440); Red Blood Count 3.95 M/mm3 (3.65-5.03); Red Cell Distribution Width 15.2 % (13.2-15.2)
[2021-05-19 09:23] LABS: Blood Urea Nitrogen 5 mg/dL (7-17); Calcium 9.9 mg/dL (8.4-10.2); Hemolysis Index 6
[2021-05-19 09:35] LABS: BUN/Creatinine Ratio 10
--- NOTE | 2021-05-19 10:00 | Ultrasound Report ---
ULTRASOUND OBSTETRIC REASON FOR EXAM: preg with abd pain/bleeding TECHNIQUE: Transabdominal and transvaginal ultrasound was performed to evaluate a first trimester pre gnancy. COMPARISON: 04/23/2021. FINDINGS: Uterus measures 9.8 cm. The endometrial stripe is thickened, measuring up to 2.4 cm at the lower uter ine segment. The endometrial canal contains heterogeneous fluid. No IUP is seen. Adnexa demonstrate no significant abnormality. No significant free fluid in the cul-de-sac. IMPRESSION: No IUP visualized. Given presence of normal IUP on 04/23/2021, these findings are consistent with spon taneous . Signer Name: Wilner Landry MD Signed: 05/19/2021 9:55 AM Workstation Name: [email or web address]
--- NOTE | 2021-05-19 11:10 | Emergency Department Report ---
ED HPI - General Chief complaint: Vaginal Bleeding Stated complaint: 14WKS PREG BLEEDING Time Seen by Provider: 05/19/21 08:21 Source: patient Mode of arrival: Ambulatory Limitations: No Limitations - History of Present Illness Initial comments: Patient is a 21-year-old -Green[place]ic female who is presenting with vaginal bleeding. Patient states she started having some heavy vaginal bleeding with cramping this morning. She is passed several large clots. Denies syncope near syncope nausea vomiting fevers chills. Pain is in the suprapubic region is crampy in nature is estimated at a 7 out of 10 in severity. Patient is approximately 14 weeks . She did have ultrasound approximately 26 days ago. Viable IUP was seen at that time. - Related Data Previous Rx's Medication Instructions Recorded Last Taken Type Ondansetron [Zofran Odt] 4 mg PO Q8HR PRN #24 tab.rapdis 04/24/21 Unknown Rx DOXYCYCLINE Hyclate [Vibramycin 100 mg PO Q12HR #14 capsule 05/19/21 Unknown Rx CAP] HYDROcodone/APAP 5-325 [[place] 1 each PO Q6HR PRN #14 tablet 05/19/21 Unknown Rx 5/325] Ibuprofen [Motrin 600 MG tab] 600 mg PO Q8H PRN #20 tablet 05/19/21 Unknown Rx Methylergonovine [Methergine] 0.2 mg PO Q8HR #20 tablet 05/19/21 Unknown Rx Allergies Allergy/AdvReac Type Severity Reaction Status Date / Time No Known Allergies Allergy Verified 05/19/21 08:08 ED Review of Systems ROS: Stated complaint: 14WKS PREG BLEEDING Other details as noted in HPI Comment: All other systems reviewed and negative ED Past Medical Hx - Past Medical History Hx Congestive Heart Failure: No Hx Diabetes: No Hx Asthma: No Hx COPD: No - Surgical History Past Surgical History?: No - Social History Smoking Status: Never Smoker Substance Use Type: None - Medications Home Medications: Home Medications Medication Instructions Recorded Confirmed Last Taken Type Ondansetron [Zofran Odt] 4 mg PO Q8HR PRN #24 tab.rapdis 04/24/21 Unknown Rx DOXYCYCLINE Hyclate [Vibramycin 100 mg PO Q12HR #14 capsule 05/19/21 Unknown Rx CAP] HYDROcodone/APAP 5-325 [[place] 1 each PO Q6HR PRN #14 tablet 05/19/21 Unknown Rx 5/325] Ibuprofen [Motrin 600 MG tab] 600 mg PO Q8H PRN #20 tablet 05/19/21 Unknown Rx Methylergonovine [Methergine] 0.2 mg PO Q8HR #20 tablet 05/19/21 Unknown Rx ED Physical Exam - General Limitations: No Limitations General appearance: alert, in distress - Head Head exam: Present: atraumatic, normocephalic - Eye Eye exam: Present: normal appearance - ENT ENT exam: Present: mucous membranes moist - Neck Neck exam: Present: normal inspection - Respiratory Respiratory exam: Present: normal lung sounds bilaterally. Absent: respiratory distress, wheezes, rales, rhonchi - Cardiovascular Cardiovascular Exam: Present: regular rate, normal rhythm, normal heart sounds. Absent: systolic murmur, diastolic murmur, rubs, gallop - GI/Abdominal GI/Abdominal exam: Present: soft, tenderness (Suprapubic), normal bowel sounds. Absent: distended, guarding, rebound, rigid - Extremities Exam Extremities exam: Present: normal inspection - Back Exam Back exam: Present: normal inspection - Neurological Exam Neurological exam: Present: alert, oriented X3 - Psychiatric Psychiatric exam: Present: normal affect, normal mood - Skin Skin exam: Present: warm, dry, intact, normal color. Absent: rash ED Course Vital Signs 05/19/21 05/19/21 05/19/21 08:13 08:46 09:03 Temperature 99.0 F Pulse Rate 124 H 91 H Respiratory 20 13 15 Rate Blood Pressure 116/59 120/64 O2 Sat by Pulse 97 100 100 Oximetry 05/19/21 05/19/21 09:43 10:00 Temperature Pulse Rate 74 67 Respiratory 15 14 Rate Blood Pressure 115/45 101/53 O2 Sat by Pulse 100 99 Oximetry - Reevaluation(s) Reevaluation #1: 05/19/21 11:20 Patient states that after the last clot which did appear to have some tissue in it she had a decrease in her pain and her bleeding. Patient states she is feeling much improved. Patient is blood type is O+ and she does not require any RhoGam shots. Patient will be discharged home. 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 ED Medical Decision Making - Lab Data Result diagrams: 05/19/21 08:42 05/19/21 08:42 - Radiology Data Institution [facility] Approval Date 2021-05-19 10:02:24 Other Patient ID My Comment(s) Study Comments [facility] [address] [place] [address] Ultrasound Report Signed Patient: TILA BRYANT MR#: [id number] : 2000 Acct:[id number] Age/Sex: 21 / F ADM Date: 05/19/21 Loc: ED Attending Dr: Ordering Physician: KANCHAN ARENAS MD Date of Service: 05/19/21 Procedure(s): US OB <= 14 weeks fetus Accession Number(s): [id number] cc: KANCHAN ARENAS MD ULTRASOUND OBSTETRIC REASON FOR EXAM: preg with abd pain/bleeding TECHNIQUE: Transabdominal and transvaginal ultrasound was performed to evaluate a first trimester . COMPARISON: 04/23/2021. FINDINGS: Uterus measures 9.8 cm. The endometrial stripe is thickened, measuring up to 2 .4 cm at the lower uterine segment. The endometrial canal contains heterogeneous fluid. No IUP is s een. Adnexa demonstrate no significant abnormality. No significant free fluid in the cul-de-sac. IMPRESSION: No IUP visualized. Given presence of normal IUP on 04/23/2021, these findings are consistent with spontaneous . Signer Name: Wilner Landry MD Signed: 05/19/2021 9:55 AM Workstation Name: [email or web address] Critical care attestation.: If time is entered above; I have spent that time in minutes in the direct care of this critically ill patient, excluding procedure time. ED Disposition Clinical Impression: Spontaneous miscarriage Disposition: 01 HOME / SELF CARE / HOMELESS Is pt being admited?: No Does the pt Need Aspirin: No Condition: Stable Instructions: Miscarriage, Bxln-[id number], Managing Loss Referrals: [facility] [Provider Group] - 3-5 Days Time of Disposition: 11:26
[2021-05-19 11:34] VITALS: BP 97/56
== END 2021-05-19 11:30 | disposition home or self-care (01) ==
LOC: ED 08:06
DX: O03.9 Complete or unspecified spontaneous abortion without complication (principal); Z79.899 Other long term (current) drug therapy; Z3A.14 14 weeks gestation of pregnancy
CPT/HCPCS: 36415; 76801; 80048; 84702; 85025; 86900; 86901; 96361; 96374; 96375; 99284; J2270; J2405; J7030

== ENCOUNTER 2021-09-30 04:28 | Emergency (ER) | payer SELFPAY ==
[2021-09-30] MEDS ORDERED: SODIUM CHLORIDE 0.9% 1000 ML 1,000 ML IV ONE ×2 (07:51→10:18)
[2021-09-30] MEDS ORDERED: ONDANSETRON 4 MG/2 ML INJ IV ONE ×2 (07:51→10:18)
--- NOTE | 2021-09-30 07:51 | Emergency Department Report ---
ED HPI - General Chief complaint: Nausea/Vomiting/Diarrhea Stated complaint: 10 WEEKS PREG NAUSEA Time Seen by Provider: 09/30/21 07:50 Source: patient Mode of arrival: Ambulatory Limitations: No Limitations - History of Present Illness Initial comments: 21 yo comes to ER with n/v associated with . Reports LMP about 10 weeks ago. G2 AB 1 no vag bleeding no vag discharge no dysuria States she can not keep anything down Pt has not seen her obgyn she is on no home meds ambulatory to ER in nad -: Gradual, days(s) Improves with: none Worsens with: eating Associated symptoms: nausea/vomiting. denies: vaginal bleeding, vaginal discharge, abdominal pain, dysuria, headache, vision changes, malaise, dysparuenia, rash, seizure, shortness of breath, syncope, weakness Vaginal bleeding: none :: Yes Number of weeks : 10 OB History - Current : other (hx miscarriage) - Related Data : 2 Para: 0 Ab: 1 Previous Rx's Medication Instructions Recorded Last Taken Type Acetaminophen [Acetaminophen 8 650 mg PO Q8H PRN #25 tablet.er 09/30/21 Unknown Rx Hour] Ondansetron [Zofran Odt] 4 mg PO Q8HR PRN #10 tab.rapdis 09/30/21 Unknown Rx cephALEXin [Keflex] 500 mg PO Q12HR #14 cap 09/30/21 Unknown Rx Allergies Allergy/AdvReac Type Severity Reaction Status Date / Time No Known Allergies Allergy Verified 05/19/21 08:08 ED Review of Systems ROS: Stated complaint: 10 WEEKS PREG NAUSEA Other details as noted in HPI Comment: All other systems reviewed and negative ED Past Medical Hx - Past Medical History Previous Medical History?: No Hx Congestive Heart Failure: No Hx Diabetes: No Hx Asthma: No Hx COPD: No - Surgical History Past Surgical History?: No - Family History Family history: no significant - Social History Smoking Status: Never Smoker Substance Use Type: None - Medications Home Medications: Home Medications Medication Instructions Recorded Confirmed Last Taken Type Acetaminophen [Acetaminophen 8 650 mg PO Q8H PRN #25 tablet.er 09/30/21 Unknown Rx Hour] Ondansetron [Zofran Odt] 4 mg PO Q8HR PRN #10 tab.rapdis 09/30/21 Unknown Rx cephALEXin [Keflex] 500 mg PO Q12HR #14 cap 09/30/21 Unknown Rx ED Physical Exam - General Limitations: No Limitations General appearance: alert, in no apparent distress - Head Head exam: Present: atraumatic, normocephalic - Eye Eye exam: Present: normal appearance - ENT ENT exam: Present: mucous membranes moist - Neck Neck exam: Present: normal inspection - Respiratory Respiratory exam: Present: normal lung sounds bilaterally. Absent: respiratory distress - Cardiovascular Cardiovascular Exam: Present: regular rate, normal rhythm. Absent: systolic murmur, diastolic murmur, rubs, gallop - GI/Abdominal GI/Abdominal exam: Present: soft, normal bowel sounds - Extremities Exam Extremities exam: Present: normal inspection - Back Exam Back exam: Present: normal inspection - Neurological Exam Neurological exam: Present: alert, oriented X3 - Psychiatric Psychiatric exam: Present: normal affect, normal mood - Skin Skin exam: Present: warm, dry, intact, normal color. Absent: rash ED Course Vital Signs 09/30/21 09/30/21 04:30 13:15 Temperature 98.1 F 98.2 F Pulse Rate 117 H 88 Respiratory 18 14 Rate Blood Pressure 114/68 Blood Pressure 124/68 [Right] O2 Sat by Pulse 99 100 Oximetry ED Medical Decision Making - Lab Data Result diagrams: 09/30/21 08:43 09/30/21 08:43 - Medical Decision Making Lab Results 09/30/21 09/30/21 09/30/21 Range/Units 08:43 08:43 08:43 WBC 7.7 (4.5-11.0) K/mm3 RBC 5.34 H (3.65-5.03) M/mm3 Hgb 15.5 H (10.1-14.3) gm/dl Hct 46.3 H (30.3-42.9) % MCV 87 (79-97) fl MCH 29 (28-32) pg MCHC 34 (30-34) % RDW 12.5 L (13.2-15.2) % Plt Count 308 (140-440) K/mm3 Sodium 141 (137-145) mmol/L Potassium 3.6 (3.6-5.0) mmol/L Chloride 100.3 (98-107) mmol/L Carbon Dioxide 23 (22-30) mmol/L Anion Gap 21 mmol/L BUN 16 (7-17) mg/dL Creatinine 0.6 (0.6-1.2) mg/dL Estimated GFR > 60 ml/min BUN/Creatinine Ratio 27 % Glucose 107 H (65-100) mg/dL Calcium 10.4 H (8.4-10.2) mg/dL Magnesium 1.90 (1.7-2.3) mg/dL HCG, Quant 118853 H (0-4) mIU/mL Urine Color (Yellow) Urine Turbidity (Clear) Urine pH (5.0-7.0) Ur Specific [place] (1.003-1.030) Urine Protein (Negative) mg/dL Urine Glucose (UA) (Negative) mg/dL Urine Ketones (Negative) mg/dL Urine Blood (Negative) Urine Nitrite (Negative) Urine Bilirubin (Negative) Urine Ictotest (Negative) Urine Urobilinogen (<2.0) mg/dL Ur Leukocyte Esterase (Negative) Urine WBC (Auto) (0.0-6.0) /HPF Urine RBC (Auto) (0.0-6.0) /HPF U Epithel Cells (Auto) (0-13.0) /HPF Urine Mucus /HPF Urine Yeast (Budding) /HPF 09/30/21 Range/Units 11:28 WBC (4.5-11.0) K/mm3 RBC (3.65-5.03) M/mm3 Hgb (10.1-14.3) gm/dl Hct (30.3-42.9) % MCV (79-97) fl MCH (28-32) pg MCHC (30-34) % RDW (13.2-15.2) % Plt Count (140-440) K/mm3 Sodium (137-145) mmol/L Potassium (3.6-5.0) mmol/L Chloride (98-107) mmol/L Carbon Dioxide (22-30) mmol/L Anion Gap mmol/L BUN (7-17) mg/dL Creatinine (0.6-1.2) mg/dL Estimated GFR ml/min BUN/Creatinine Ratio % Glucose (65-100) mg/dL Calcium (8.4-10.2) mg/dL Magnesium (1.7-2.3) mg/dL HCG, Quant (0-4) mIU/mL Urine Color Damaris (Yellow) Urine Turbidity Slightly-cloudy (Clear) Urine pH 5.0 (5.0-7.0) Ur Specific [place] 1.033 H (1.003-1.030) Urine Protein 100 mg/dl (Negative) mg/dL Urine Glucose (UA) Neg (Negative) mg/dL Urine Ketones 80 (Negative) mg/dL Urine Blood Neg (Negative) Urine Nitrite Neg (Negative) Urine Bilirubin Sm (Negative) Urine Ictotest Negative (Negative) Urine Urobilinogen 4.0 (<2.0) mg/dL Ur Leukocyte Esterase Sm (Negative) Urine WBC (Auto) 16.0 H (0.0-6.0) /HPF Urine RBC (Auto) 5.0 (0.0-6.0) /HPF U Epithel Cells (Auto) 6.0 (0-13.0) /HPF Urine Mucus 3+ /HPF Urine Yeast (Budding) Few /HPF Vital Signs 09/30/21 04:30 Temperature 98.1 F Pulse Rate 117 H Respiratory 18 Rate Blood Pressure 114/68 O2 Sat by Pulse 99 Oximetry labs noted ua noted pt has NO vag bleeding and NO pain pt just here for n/v 2L NS/zofran given rocephin IV for UTI on reexam pt is laughing and smiling- reports feeling better. Taking PO with no difficulty. pt dc home with dc plan of care including diet, activity, meds, follow up. Pt verbalizes understanding of plan of care. Vital Signs 09/30/21 09/30/21 04:30 13:15 Temperature 98.1 F 98.2 F Pulse Rate 117 H 88 Respiratory 18 14 Rate Blood Pressure 114/68 Blood Pressure 124/68 [Right] O2 Sat by Pulse 99 100 Oximetry - Differential Diagnosis hyperemesis of preg/ro dehydration Critical care attestation.: If time is entered above; I have spent that time in minutes in the direct care of this critically ill patient, excluding procedure time. ED Disposition Clinical Impression: Vomiting UTI (urinary tract infection) Qualifiers: Urinary tract infection type: site unspecified Disposition: 01 HOME / SELF CARE / HOMELESS Is pt being admited?: No Does the pt Need Aspirin: No Condition: Stable Instructions: and Urinary Tract Infection Additional Instructions: STAY WELL HYDRATED WITH WATER TYLENOL FOR PAIN FOLLOW UP WITH OBGYN IN 48 HOURS FOR RECHECK REFERRAL BELOW DIET AND ACTIVITY TOLERATED Prescriptions: Acetaminophen [Acetaminophen 8 Hour] 650 mg PO Q8H PRN #25 tablet.er PRN Reason: Pain , Severe (7-10) cephALEXin [Keflex] 500 mg PO Q12HR #14 cap Ondansetron [Zofran Odt] 4 mg PO Q8HR PRN #10 tab.rapdis PRN Reason: Vomiting Referrals: PRIMARY CARE, [Primary Care Provider] - 3-5 Days LYNSEY VÁZQUEZ MD [Staff Physician] - 3-5 Days Time of Disposition: 13:06
[2021-09-30 09:05] LABS: Hematocrit 46.3 % (30.3-42.9); Hemoglobin 15.5 gm/dl (10.1-14.3); Mean Corpuscular HGB Conc 34 % (30-34); Mean Corpuscular Volume 87 fl (79-97); Platelet Count 308 K/mm3 (140-440); Red Blood Count 5.34 M/mm3 (3.65-5.03); Red Cell Distribution Width 12.5 % (13.2-15.2)
[2021-09-30 09:17] LABS: Blood Urea Nitrogen 16 mg/dL (7-17); Calcium 10.4 mg/dL (8.4-10.2); Hemolysis Index 8
[2021-09-30 09:18] LABS: BUN/Creatinine Ratio 27
[2021-09-30 11:54] LABS: Bilirubin,Urine SM (Negative); Blood,Urine NEG (Negative); Color,Urine Amber (Yellow); Mucus,Urine 3+ /HPF
[2021-09-30 11:57] LABS: Ictotest,Urine Negative (Negative)
[2021-09-30] MEDS ORDERED: cefTRIAXone/NS 1 GM/50 ML 1 GM/50 ML BAG IV ONE (12:07)
[2021-09-30] MEDS ORDERED: FLUCONAZOLE 100 MG TAB PO ONE (13:08)
[2021-09-30 13:16] VITALS: BP 124/68
== END 2021-09-30 13:14 | disposition home or self-care (01) ==
LOC: ED 04:28
DX: O21.9 Vomiting of pregnancy, unspecified (principal); O23.41 Unspecified infection of urinary tract in pregnancy, first trimester; N39.0 Urinary tract infection, site not specified
CPT/HCPCS: 36415; 80048; 81001; 83735; 84702; 85027; 87086; 96361; 96365; 96375; 96376; 99283; J0696; J2405; J7030; Q0162

== ENCOUNTER 2021-10-07 18:16 | Emergency (ER) | payer SELFPAY ==
[2021-10-07] MEDS ORDERED: diphenhydrAMINE 50 MG/ML VIAL IV ONE (18:35)
[2021-10-07] MEDS ORDERED: METOCLOPRAMIDE 10 MG/2 ML INJ IV ONE (18:35)
[2021-10-07] MEDS ORDERED: LACTATED RINGERS 1,000 ML IV ONE (18:36)
[2021-10-07 19:09] LABS: Basophils # (Auto) 0.1 K/mm3 (0.0-0.1); Basophils % (Auto) 0.8 % (0.0-1.8); Eosinophils # (Auto) 0.1 K/mm3 (0.0-0.4); Eosinophils % (Auto) 1.2 % (0.0-4.3); Hematocrit 44.2 % (30.3-42.9); Hemoglobin 14.8 gm/dl (10.1-14.3); Lymphocytes # (Auto) 1.8 K/mm3 (1.2-5.4); Lymphocytes % (Auto) 24.1 % (13.4-35.0); Mean Corpuscular HGB Conc 34 % (30-34); Mean Corpuscular Volume 87 fl (79-97); Monocytes # (Auto) 0.6 K/mm3 (0.0-0.8); Monocytes % (Auto) 8.1 % (0.0-7.3); Platelet Count 262 K/mm3 (140-440); Red Blood Count 5.09 M/mm3 (3.65-5.03); Red Cell Distribution Width 12.3 % (13.2-15.2)
[2021-10-07] MEDS ORDERED: FAMOTIDINE 20 MG/2 ML INJ IV ONE (19:18)
[2021-10-07 19:24] LABS: BUN/Creatinine Ratio 20; Blood Urea Nitrogen 10 mg/dL (7-17); Calcium 9.9 mg/dL (8.4-10.2); Hemolysis Index 5
--- NOTE | 2021-10-07 19:40 | Emergency Department Report ---
ED General Adult HPI - General Chief complaint: Nausea/Vomiting/Diarrhea Stated complaint: VOMITING WITH Time Seen by Provider: 10/07/21 18:36 Source: patient Mode of arrival: Ambulatory Limitations: No Limitations - History of Present Illness Initial comments: 21-year-old -[place] female patient presents with complaints of nausea and vomiting in . She states she is around 11 to 12 weeks . Patient was seen here for the same on 09/30/2020. She is currently following with her ASSOCIATE DEAN and states that the sublingual Zofran and rectal Phenergan are not helping with her symptoms. She denies any abdominal pain, vaginal bleeding, dysuria/hematuria/urinary frequency, or fever/chills/sweats. Patient was diagnosed with a UTI at the last visit and states she completed the Keflex as prescribed. Her urine culture at that time showed normal skin skylar - Related Data Previous Rx's Medication Instructions Recorded Last Taken Type Acetaminophen [Acetaminophen 8 650 mg PO Q8H PRN #25 tablet.er 09/30/21 Unknown Rx Hour] Ondansetron [Zofran Odt] 4 mg PO Q8HR PRN #10 tab.rapdis 09/30/21 Unknown Rx cephALEXin [Keflex] 500 mg PO Q12HR #14 cap 09/30/21 Unknown Rx Famotidine [Pepcid] 20 mg PO BID PRN 7 Days #14 tablet 10/07/21 Unknown Rx Metoclopramide [Reglan] 10 mg PO TID PRN #30 tab 10/07/21 Unknown Rx diphenhydrAMINE [Benadryl CAP] 25 mg PO Q8HR PRN #30 capsule 10/07/21 Unknown Rx Allergies Allergy/AdvReac Type Severity Reaction Status Date / Time No Known Allergies Allergy Verified 05/19/21 08:08 ED Review of Systems ROS: Stated complaint: VOMITING WITH Other details as noted in HPI Constitutional: denies: chills, diaphoresis, fever, malaise, weakness Respiratory: denies: cough, shortness of breath Cardiovascular: denies: chest pain Gastrointestinal: nausea, vomiting. denies: abdominal pain, diarrhea, constipation, hematemesis, melena, hematochezia, other (Coffee-ground emesis) Genitourinary: denies: urgency, dysuria, frequency, hematuria, discharge Musculoskeletal: denies: back pain Neurological: denies: headache ED Past Medical Hx - Past Medical History Hx Congestive Heart Failure: No Hx Diabetes: No Hx Asthma: No Hx COPD: No - Social History Smoking Status: Never Smoker Substance Use Type: None - Medications Home Medications: Home Medications Medication Instructions Recorded Confirmed Last Taken Type Acetaminophen [Acetaminophen 8 650 mg PO Q8H PRN #25 tablet.er 09/30/21 Unknown Rx Hour] Ondansetron [Zofran Odt] 4 mg PO Q8HR PRN #10 tab.rapdis 09/30/21 Unknown Rx cephALEXin [Keflex] 500 mg PO Q12HR #14 cap 09/30/21 Unknown Rx Famotidine [Pepcid] 20 mg PO BID PRN 7 Days #14 tablet 10/07/21 Unknown Rx Metoclopramide [Reglan] 10 mg PO TID PRN #30 tab 10/07/21 Unknown Rx diphenhydrAMINE [Benadryl CAP] 25 mg PO Q8HR PRN #30 capsule 10/07/21 Unknown Rx ED Physical Exam - General Limitations: No Limitations General appearance: alert, in no apparent distress - Head Head exam: Present: atraumatic, normocephalic - Eye Eye exam: Present: normal appearance - Respiratory Respiratory exam: Present: normal lung sounds bilaterally. Absent: respiratory distress - Cardiovascular Cardiovascular Exam: Present: regular rate, normal rhythm - GI/Abdominal GI/Abdominal exam: Present: soft, normal bowel sounds. Absent: tenderness, guarding, rebound, rigid - Neurological Exam Neurological exam: Present: alert, oriented X3 - Psychiatric Psychiatric exam: Present: normal affect, normal mood - Skin Skin exam: Present: warm, dry, intact, normal color. Absent: rash ED Course Vital Signs 10/07/21 18:23 Temperature 98.6 F Pulse Rate 110 H Respiratory 16 Rate Blood Pressure 135/72 O2 Sat by Pulse 100 Oximetry ED Medical Decision Making - Lab Data Result diagrams: 10/07/21 18:53 10/07/21 18:50 Lab Results 10/07/21 10/07/21 Range/Units 18:50 18:53 WBC 7.5 (4.5-11.0) K/mm3 RBC 5.09 H (3.65-5.03) M/mm3 Hgb 14.8 H (10.1-14.3) gm/dl Hct 44.2 H (30.3-42.9) % MCV 87 (79-97) fl MCH 29 (28-32) pg MCHC 34 (30-34) % RDW 12.3 L (13.2-15.2) % Plt Count 262 (140-440) K/mm3 Lymph % (Auto) 24.1 (13.4-35.0) % [place]ie % (Auto) 8.1 H (0.0-7.3) % Eos % (Auto) 1.2 (0.0-4.3) % Baso % (Auto) 0.8 (0.0-1.8) % Lymph # (Auto) 1.8 (1.2-5.4) K/mm3 Davie # (Auto) 0.6 (0.0-0.8) K/mm3 Eos # (Auto) 0.1 (0.0-0.4) K/mm3 Baso # (Auto) 0.1 (0.0-0.1) K/mm3 Seg Neutrophils % 65.8 (40.0-70.0) % Seg Neutrophils # 5.0 (1.8-7.7) K/mm3 Sodium 134 L (137-145) mmol/L Potassium 4.0 (3.6-5.0) mmol/L Chloride 95.3 L (98-107) mmol/L Carbon Dioxide 23 (22-30) mmol/L Anion Gap 20 mmol/L BUN 10 (7-17) mg/dL Creatinine 0.5 L (0.6-1.2) mg/dL Estimated GFR > 60 ml/min BUN/Creatinine Ratio 20 % Glucose 87 (65-100) mg/dL Calcium 9.9 (8.4-10.2) mg/dL - Medical Decision Making 21-year-old -[place] female patient presents with complaints of nausea and vomiting in . She states she is around 11 to 12 weeks . Patient was seen here for the same on 09/30/2020. She is currently following with her ASSOCIATE DEAN and states that the sublingual Zofran and rectal Phenergan are not helping with her symptoms. She denies any abdominal pain, vaginal bleeding, dysuria/hematuria/urinary frequency, or fever/chills/sweats. Patient was d iagnosed with a UTI at the last visit and states she completed the Keflex as prescribed. Her urine culture at that time showed normal skin skylar Nausea vomiting control Reglan Benadryl. Vitals are stable. Patient denies any urinary symptoms. Will discharge home with same meds. She is to follow-up with ASSOCIATE DEAN in 3 to 5 days. Strict return precautions discussed in detail patient verbalized understand Critical care attestation.: If time is entered above; I have spent that time in minutes in the direct care of this critically ill patient, excluding procedure time. ED Disposition Clinical Impression: Vomiting during Disposition: 01 HOME / SELF CARE / HOMELESS Is pt being admited?: No Condition: Stable Instructions: Hyperemesis Gravidarum Additional Instructions: Follow-up with your ASSOCIATE DEAN within 3 to 5 days Prescriptions: diphenhydrAMINE [Benadryl CAP] 25 mg PO Q8HR PRN #30 capsule PRN Reason: Nausea Famotidine [Pepcid] 20 mg PO BID PRN 7 Days #14 tablet PRN Reason: heartburn Metoclopramide [Reglan] 10 mg PO TID PRN #30 tab PRN Reason: Nausea Forms: Work/School Release Form(ED)
[2021-10-07] MEDS ORDERED: D5W/0.9% NACL 1,000 ML IV SCH (20:00)
[2021-10-07 23:02] VITALS: BP 98/52
== END 2021-10-08 01:30 | disposition home or self-care (01) ==
LOC: ED 18:16
DX: O21.9 Vomiting of pregnancy, unspecified (principal); Z3A.12 12 weeks gestation of pregnancy; Z79.899 Other long term (current) drug therapy
CPT/HCPCS: 36415; 80048; 85025; 96361; 96374; 96375; 99283; J1200; J2765; J3490; J7042; J7120

== ENCOUNTER 2022-04-28 19:17 | Inpatient (IN) | payer SELFPAY ==
[2022-04-28] MEDS ORDERED: ePHEDrine SULFATE 50 MG/1 ML INJ IV PRN (22:02)
[2022-04-28] MEDS ORDERED: fentaNYL 100 MCG/2 ML INJ IV PRN (22:02)
[2022-04-28] MEDS ORDERED: OXYTOCIN 10 UNIT/1 ML INJ IM PRN (22:02)
[2022-04-28] MEDS ORDERED: LIDOCAINE (2%) 20 MG/1 ML VIAL 20 ML MDV INFILTRATI ONE (22:02)
[2022-04-28] MEDS ORDERED: AMPICILLIN/NS 2 GM/100 ML 2 GM/100 ML BAG IV ONE (22:02)
[2022-04-28] MEDS ORDERED: LOPERAMIDE 2 MG CAP PO PRN (22:02)
[2022-04-28] MEDS ORDERED: ONDANSETRON 4 MG/2 ML INJ IV PRN (22:02)
[2022-04-28] MEDS ORDERED: CARBOPROST TROMETHAMINE 250 MCG/1 ML INJ IM PRN (22:02)
[2022-04-28] MEDS ORDERED: BUTORPHANOL 2 MG/1 ML INJ IV PRN ×3 (22:02→22:30)
[2022-04-28] MEDS ORDERED: TERBUTALINE 1 MG/1 ML INJ SUB-Q PRN (22:02)
[2022-04-28] MEDS ORDERED: ACETAMINOPHEN 325 MG TAB PO PRN (22:02)
[2022-04-28] MEDS ORDERED: NalbUPHINE 10 MG/1 ML INJ IV PRN (22:02)
[2022-04-28] MEDS ORDERED: MINERAL OIL 30 ML ORAL LIQD PO PRN (22:02)
[2022-04-28] MEDS ORDERED: miSOPROStol 200 MCG TAB PR PRN (22:02)
[2022-04-28] MEDS ORDERED: METHYLERGONOVINE MALEATE 0.2 MG/ML VIAL IM PRN (22:02)
[2022-04-28] MEDS ORDERED: LACTATED RINGERS 1,000 ML IV SCH (22:15)
--- NOTE | 2022-04-28 22:34 | History and Physical Report ---
History of Present Illness Date of examination: 04/28/22 Date of admission: 04/28/2022 Chief complaint: Contractions History of present illness: 22-year-old functional primigravida at 40-2/7 weeks gestation presents to OB triage reporting regular and painful uterine contractions every 5 minutes. There is no vaginal bleeding. There is no leaking of fluid. There is good movement. Cervical exam was 4 to 5 cm dilated in OB triage. The patient has a history of a GBS positive urinary tract infection. This patient is admitted to labor and delivery for expectant management of labor. She will be given intravenous penicillin for intrapartum GBS prophylaxis . Past History Past Medical History: no pertinent history Past Surgical History: no surgical history Family/Genetic History: none Social history: no significant social history - Obstetrical History Expected Date of Delivery: 04/26/22 Actual Gestation: 40 Week(s) 3 Day(s) : 2 Para: 1 Hx # Term Pregnancies: 0 Number of Pregnancies: 1 (16-week demise) Number of Living Children: 0 Medications and Allergies Allergies Allergy/AdvReac Type Severity Reaction Status Date / Time No Known Allergies Allergy Verified 05/19/21 08:08 Home Medications Medication Instructions Recorded Confirmed Last Taken Type Acetaminophen [Acetaminophen 8 650 mg PO Q8H PRN #25 tablet.er 09/30/21 Unknown Rx Hour] Ondansetron [Zofran Odt] 4 mg PO Q8HR PRN #10 tab.rapdis 09/30/21 Unknown Rx cephALEXin [Keflex] 500 mg PO Q12HR #14 cap 09/30/21 Unknown Rx Famotidine [Pepcid] 20 mg PO BID PRN 7 Days #14 tablet 10/07/21 Unknown Rx Metoclopramide [Reglan] 10 mg PO TID PRN #30 tab 10/07/21 Unknown Rx diphenhydrAMINE [Benadryl CAP] 25 mg PO Q8HR PRN #30 capsule 10/07/21 Unknown Rx Active Meds: Active Medications Acetaminophen (Acetaminophen 325 Mg Tab) 650 mg PO Q4H PRN PRN Reason: Pain, Mild (1-3) Butorphanol Tartrate (Butorphanol 2 Mg/1 Ml Inj) 2 mg IV Q2H PRN PRN Reason: Pain, Moderate(4-6) LABOR PAIN Carboprost Tromethamine (Carboprost Tromethamine 250 Mcg/1 Ml Inj) 250 mcg IM ONCE PRN PRN Reason: Uterine Bleeding Fentanyl (Fentanyl 100 Mcg/2 Ml Inj) 100 mcg IV Q2H PRN PRN Reason: Pain,Severe (7-10) LABOR PAIN Lactated Ringer's (Lactated Ringers) 1,000 mls @ 125 mls/hr IV DIRECT LOYDA Oxytocin/Sodium Chloride (Pitocin/Ns 30 Unit/500ml) 30 units in 500 mls @ 40 mls/hr IV TITR LOYDA; Protocol Methylergonovine Maleate (Methylergonovine Maleate 0.2 Mg/Ml Vial) 0.2 mg IM ONCE PRN PRN Reason: Uterine Bleeding Terbutaline Sulfate (Terbutaline 1 Mg/1 Ml Inj) 0.25 mg SUB-Q ONCE PRN PRN Reason: Hyperstimulation/Hypertonicity Review of Systems All systems: negative - Vital Signs Vital signs: Vital Signs Pulse BP Pulse Ox 88 119/58 99 04/28/22 21:11 04/28/22 21:11 04/28/22 21:11 Temp Pulse Resp BP Pulse Ox 100.0 F H 95 H 16 119/58 98 04/28/22 22:08 04/28/22 22:28 04/28/22 22:08 04/28/22 21:11 04/28/22 22:28 - Physical Exam Breasts: Positive: normal Cardiovascular: Regular rate Lungs: Positive: Normal air movement Abdomen: Positive: normal appearance Genitourinary (Female): Positive: normal external genitalia, normal perenium Vulva: both: normal Vagina: Positive: normal moisture Uterus: Positive: enlarged Adnexa: both: normal Anus/Rectum: Positive: normal perianal skin Deep Tendon Reflex Grade: Normal +2 - Obstetrical FHR: category 1 Uterine Contraction Monitor Mode: External Cervical Dilatation: 4.5 Cervical Effacement Percentage: 60 station: -2 Uterine Contraction Frequency (min): 5 Uterine Contraction Pattern: Regular Results Result Diagrams: 04/28/22 22:20 All other labs normal. Ultrasound: pending Assessment and Plan - Patient Problems (1) 40 weeks gestation of Current Visit: Yes Status: Acute Plan to address problem: care is up-to-date. The patient has a history of GBS bacteriuria. Start penicillin for intrapartum GBS prophylaxis. (2) Postmaturity , 40-42 weeks gestation Current Visit: Yes Status: Acute Plan to address problem: At this gestational age, delivery is indicated. (3) GBS carrier Current Visit: Yes Status: Acute Plan to address problem: Start penicillin for intrapartum GBS prophylaxis per 2010 CDC MMWR guidelines. (4) Active labor at term Current Visit: Yes Status: Acute Plan to address problem: Admit to labor and delivery. Expectant management for now.
[2022-04-28] MEDS ORDERED: PENICILLIN G POTASSIUM 5 MIL.UNITS in SODIUM CHLORIDE 0.9% 100 ML IV ONE (22:43)
[2022-04-28 22:45] LABS: Hematocrit 36.9 % (30.3-42.9); Mean Corpuscular HGB Conc 32 % (30-34); Mean Corpuscular Volume 83 fl (79-97); Platelet Count 324 K/mm3 (140-440); Red Blood Count 4.43 M/mm3 (3.65-5.03)
[2022-04-28] MEDS ORDERED: OXYTOCIN DRIP 30 UNITS/500 ML BAG IV SCH ×2 (23:00)
[2022-04-29] MEDS ORDERED: PENICILLIN G POTASSIUM 2.5 MIL.UNITS in SODIUM CHLORIDE 0.9% 50 ML IV SCH (02:00)
--- NOTE | 2022-04-29 02:38 | Ultrasound Report ---
ULTRASOUND OBSTETRIC INDICATION: Pelvic pain. Clinical Gestational Age (GA): 40.2 weeks TECHNIQUE: Transabdominal. COMPARISON: No relevant prior imaging study available. FINDINGS: There is a single intrauterine with an estimated age of 37.2 weeks based on ultrasound michael urements. Heart Rate: 148 beats per minute. Estimated Weight in grams (if calculated): 3291 Estimated Weight Growth Percentile (if calculated): 21 Position: cephalic. Cervix: closed. Length in cm (if measured): Not measured Placenta: anterofundal and free of the os. Amniotic Fluid Volume: normal Amniotic Fluid Index (JAZMINE) in cm (if calculated): 12.1. Maternal Adnexa: No significant abnormality. IMPRESSION: 1. Single, living intrauterine with estimated sonographic age of 37 weeks, 2 day(s). 2. No significant sonographic abnormality. Signer Name: Wade Salazar MD Signed: 04/29/2022 2:34 AM Workstation Name: [id number]
[2022-04-29] MEDS ORDERED: AMPICILLIN/NS 1 GM/50 ML 1 GM/50 ML BAG IV SCH (03:00)
--- NOTE | 2022-04-29 03:16 | Procedure Note ---
OB Delivery Note - Delivery Date of Delivery: 04/29/22 Surgeon: CHANDNI BRAGA Estimated blood loss: 500cc - Vaginal Delivery presentation: vertex Delivery position: OA Intrapartum events: none Delivery induction: none Delivery monitor: external FHT, external uterine Route of delivery: Delivery placenta: spontaneous Delivery cord: 3 umbilical vessels Episiotomy: midline Delivery laceration: 2nd degree Delivery repair: vicryl Anesthesia: local Delivery comments: The patient is a 22 old primigravida at term who presented to OB triage in active labor. She was transferred to labor and delivery. Her cervical exam changed to 10/100%/+2. There was maternal exhaustion. Perineal body was infiltrated with lidocaine 1% 10 mL. Midline episiotomy was performed with the Barr scissors. Thereafter, the head was delivered without difficulty. Mouth and nose were bulb suction at the perineal body. The remainder the was delivered atraumatically. After delayed cord clamping for 1 minute, the umbilical cord was cut. The was handed off to waiting nursery team. The placenta was spontaneously extracted. There is a second-degree perineal laceration. That was repaired with 2-0 Vicryl and 3-0 Vicryl without difficulty. There were bilateral periurethral abrasions that were hemostatic. All instruments were removed from the patient's vagina. Digital sweep confirmed the absence of retained sponges in the vagina - Infant A at 1 minute: 8 at 5 minutes: 8 Infant Gender: Female (Weight 3610 g)
[2022-04-29] MEDS ORDERED: BENZOCAINE/MENTHOL 20/0.5% TOP SPRAY 56 GM TP PRN (03:17)
[2022-04-29] MEDS ORDERED: WITCH HAZEL/ GLYCERIN PAD TP PRN (03:17)
[2022-04-29] MEDS ORDERED: LANOLIN/ZINC/DIMETHICONE (LANSINOH) 7 GM TP PRN (03:17)
[2022-04-29] MEDS ORDERED: MAGNESIUM HYDROXIDE (MOM) ORAL LIQD UDC PO PRN (03:17)
[2022-04-29] MEDS ORDERED: ACETAMINOPHEN 325 MG TAB PO PRN (03:17)
[2022-04-29] MEDS: HYDROcodone/ACETAMINOPHEN 5-325 MG TAB PO PRN ×2 (03:32→18:17)
[2022-04-29] MEDS: PRENATAL VIT27-FE FUMARATE-FOLIC ACID VIT TAB PO SCH (10:40)
[2022-04-29] MEDS: DOCUSATE SODIUM 100 MG CAP PO SCH ×2 (10:40→21:58)
[2022-04-30] MEDS: HYDROcodone/ACETAMINOPHEN 5-325 MG TAB PO PRN ×2 (00:29→06:05)
[2022-04-30 08:50] LABS: Hematocrit 31.1 % (30.3-42.9); Hemoglobin 9.8 gm/dl (10.1-14.3); Mean Corpuscular HGB Conc 31 % (30-34); Mean Corpuscular Volume 84 fl (79-97); Platelet Count 282 K/mm3 (140-440); Red Blood Count 3.72 M/mm3 (3.65-5.03); Red Cell Distribution Width 15.4 % (13.2-15.2)
[2022-04-30] MEDS ORDERED: FERROUS SULFATE 325 MG TAB PO SCH (10:00)
--- NOTE | 2022-04-30 10:04 | Progress Note ---
Assessment and Plan A: S/P Asymptomatic anemia P: D/C home per pt's request Subjective - Subjective Date of service: 04/30/22 Principal diagnosis: s/p Patient reports: appetite normal, voiding normally, pain well controlled, amb ulating normally : doing well, bottle feeding Objective - Vital Signs Latest vital signs: Vital Signs Temp Pulse Resp BP BP Pulse Ox Pulse Ox 04/30/22 08:00 98.3 F 90 18 114/58 98 04/30/22 00:30 98.2 F 92 H 20 108/52 98 04/29/22 20:15 99 04/29/22 16:05 97.5 F L 88 18 117/50 99 04/29/22 12:56 97.6 F 95 H 18 118/54 98 Intake and Output 04/29/22 04/30/22 04/30/22 22:59 06:59 14:59 Output Total 900 Balance -900 Output: Urine 900 Void 900 Other: Total, Output Amount 900 # Voids Void 700 1 - Exam Breasts: Present: normal Abdomen: Present: normal appearance, soft, normal bowel sounds Vulva: both: normal Uterus: Present: normal, firm, fundal height below umbilicus Extremities: Present: normal Incision: Present: normal, intact - Labs Labs: Abnormal lab results 04/30/22 Range/Units 06:58 WBC 12.8 H (4.5-11.0) K/mm3 Hgb 9.8 L (10.1-14.3) gm/dl MCH 26 L (28-32) pg RDW 15.4 H (13.2-15.2) %
--- NOTE | 2022-04-30 10:15 | Discharge Summary ---
Providers - Providers Date of Admission: 04/28/22 22:02 Date of discharge: 04/30/22 Attending physician: LYNSEY VÁZQUEZ 04/29/22 15:38 Consult to Mental Health [CONS] Routine Reason For Exam: Scored 13 on [place] Primary care physician: LYNSEY VÁZQUEZ Hospitalization Reason for admission: active labor, IUP at term Delivery: Episiotomy: midline Laceration: none Incision: normal, intact Other procedures: none complications: none Discharge diagnosis: IUP at term delivered Lottie baby: female Hospital course: Pt was admitted to [facility] in active labor. She had a w/o pp complications. Pt was d/c'd home in stable condition. Condition at discharge: Stable Disposition: 01 HOME / SELF CARE / HOMELESS Plan - Discharge Medications Prescriptions: Ferrous Sulfate [Feosol 325 MG tab] 325 mg PO QDAY #30 tablet - Provider Discharge Summary Activity: routine, no sex for 6 weeks, no heavy lifting 4 weeks, no strenuous exercise Diet: routine Instructions: routine Additional instructions: [] Smoking cessation referral if applicable(refer to patient education folder for contact #) [] Refer to [facility] Booklet Call your doctor immediately for: * Fever > 100.5 * Heavy vaginal bleeding ( >1 pad per hour) * Severe persistent headache * Shortness of breath * Reddened, hot, painful area to leg or breast * Drainage or odor from incision. * Keep incision clean and dry at all times and follow doctor's instructions regarding bathing/showering - Follow up plan Follow up: LYNSEY VÁZQUEZ MD [Primary Care Provider] - 6 Weeks
[2022-04-30] MEDS: PRENATAL VIT27-FE FUMARATE-FOLIC ACID VIT TAB PO SCH (10:42)
[2022-04-30] MEDS: DOCUSATE SODIUM 100 MG CAP PO SCH (10:42)
--- NOTE | 2022-04-30 11:40 | Consultation ---
History of Present Illness - Reason for Consult Consult date: 04/30/22 Reason for consult: [place] score 13 - Chief Complaint Chief complaint: Contractions - History of Present Psychiatric Illness The patient is a 22 year female with no psychiatric history and she is naive to psychotropic medications; she was consulted for [place] score of 13. The patient is calm, alert and oriented x4. She presents with appropriate affect. She denies depression or feeling excessively anxious.The patient reports support system as her family members and her baby's father. She denies any current suicidal/homicidal ideation and denies hallucinations. PAST PSYCHIATRIC HISTORY: Diagnoses: Denies Suicide attempts or Self-harm behavior: Denies Prior psychiatric hospitalizations: denies Substance Abuse history: Denies Previous psychiatric medications tried: Denies Outpatient treatment: Denies PAST MEDICAL HISTORY: None reported Family Psychiatric History: unknown SOCIAL HISTORY Marital Status: Single Living Arrangements: Lives alone Employment Status: Unemployed Access to guns/weapons: Denies Education: 12th grade History of Abuse: Denies Legal History: unknown REVIEW OF SYSTEMS Constitutional: Negative for weight loss ENT: Negative for stridor Respiratory: Negative for cough or hemoptysis All other systems reviewed and are negative MENTAL STATUS General Appearance and Behavior: age appropriate, good eye contact, cooperative Cooperation: Cooperative Psychomotor Behavior: within normal limits Mood: "good" Affect and affective range: Congruent with stated mood Thought Process: goal oriented Thought Content: reality oriented Speech: Normal volume and Regular rate and rhythm Suicidal Ideation: Denies Homicidal Ideation: Denies Hallucinations: Denies Impulse Control: intact Insight and Judgment: Limited Memory: Limited Attention: Attentive Orientation: alert and oriented x4 Assessment Mental health evaluation Treatment Plan Continue home meds Medical: Per primary SItter: Defer to primary Disposition: Do not recommend acute psychiatric inpatient treatment. [facility] will provide patient with psychiatric outpatient resources. Will sign off. Thanks Case staffed with Dr. Roque Medications and Allergies Medications and Allergies Allergies Allergy/AdvReac Type Severity Reaction Status Date / Time No Known Allergies Allergy Verified 05/19/21 08:08 Home Medications Medication Instructions Recorded Confirmed Last Taken Type Acetaminophen [Acetaminophen 8 650 mg PO Q8H PRN #25 tablet.er 09/30/21 Unknown Rx Hour] Benzocaine 20% Topical [place] 0.5 ml MM NOW PRN #1 packet 04/30/22 Unknown Rx [Hurricaine One 20% Topical [place]] Ferrous Sulfate [Feosol 325 MG tab] 325 mg PO QDAY #30 tablet 04/30/22 Unknown Rx Ibuprofen [Motrin 800 MG tab] 800 mg PO Q8HR PRN #15 tablet 04/30/22 Unknown Rx Vit-Fe Fumar-FA [ 1 each PO QDAY tablet 04/30/22 Unknown Rx Vitamin] Active Meds: Active Medications Acetaminophen (Acetaminophen 325 Mg Tab) 650 mg PO Q4H PRN PRN Reason: Pain MILD(1-3)/Fever >100.5/[facility]CRACKEN Last Admin: 04/30/22 10:42 Dose: 650 mg Hydrocodone Bitart/Acetaminophen (Hydrocodone/Acetaminophen 5-325 Mg Tab) 2 each PO Q6H PRN PRN Reason: Pain, Moderate (4-6) Last Admin: 04/30/22 06:05 Dose: 2 each Benzocaine/Menthol (Benzocaine/Menthol 20/0.5% Top [place] 56 Gm) 1 spray TP PRN PRN PRN Reason: Episiotomy Pain Docusate Sodium (Docusate Sodium 100 Mg Cap) 100 mg PO BID [facility] Last Admin: 04/30/22 10:42 Dose: 100 mg Ferrous Sulfate (Ferrous Sulfate 325 Mg Tab) 325 mg PO QDAY [facility] Last Admin: 04/30/22 10:42 Dose: 325 mg Magnesium Hydroxide (Magnesium Hydroxide (Mom) Oral Liqd Udc) 30 ml PO HS PRN PRN Reason: Constipation Multi-Ingredient Ointment (Lanolin/Zinc/Dimethicone (Lansinoh) 7 Gm) 1 applic TP PRN PRN PRN Reason: Sore Nipples Multivitamins/Iron/Calcium ( Rxj20-Ol Fumarate-Folic Acid Vit Tab) 1 each PO QDAY [facility] Last Admin: 04/30/22 10:42 Dose: 1 each Witch Patricia/Glycerin (Witch Patricia/ Glycerin Pad) 1 each TP PRN PRN PRN Reason: Hemorrhoid/cleansing/soothing Last Admin: 04/30/22 10:45 Dose: 1 each Mental Status Exam - Vital signs Last Vital Signs Temp 98.3 F 04/30/22 08:00 Pulse 90 04/30/22 08:00 Resp 18 04/30/22 08:00 BP 114/58 04/30/22 08:00 Pulse Ox 98 04/30/22 08:00 Results Result Diagrams: 04/30/22 06:58 Abnormal lab results 04/30/22 Range/Units 06:58 WBC 12.8 H (4.5-11.0) K/mm3 Hgb 9.8 L (10.1-14.3) gm/dl MCH 26 L (28-32) pg RDW 15.4 H (13.2-15.2) % All other labs normal.
[2022-04-30 16:18] VITALS: BP 112/57
== END 2022-04-30 19:33 | disposition home or self-care (01) | DRG 807 ==
LOC: TRG 19:17 → APU 19:18 → TRG 22:02 → LD 23:27 → OB 04-29 04:36
PROVIDERS: ADMIT Obstetrics & Gynecology; ATTEND Obstetrics & Gynecology
PROC: 10E0XZZ Delivery of Products of Conception, External Approach (ICD-10-PCS; principal; 2022-04-29)
PROC: 0KQM0ZZ Repair Perineum Muscle, Open Approach (ICD-10-PCS; 2022-04-29)
PROC: 0W8NXZZ Division of Female Perineum, External Approach (ICD-10-PCS; 2022-04-29)
DX: O48.0 Post-term pregnancy (principal); Z37.0 Single live birth; Z20.822 Contact with and (suspected) exposure to COVID-19; O99.824 Streptococcus B carrier state complicating childbirth; Z3A.40 40 weeks gestation of pregnancy; O70.1 Second degree perineal laceration during delivery; O99.02 Anemia complicating childbirth
CPT/HCPCS: 36415; 76816; 85027; 86592; 86850; 86900; 86901; G0378; J2540; U0003